=== PATIENT | male | born 1950 | race Hispanic/Latino ===

== ENCOUNTER → 2017-10-23 | Outpatient (CLI) | payer OTHER ==
[~2017-10-23] VITALS: Ht 172.7 cm; Wt 107.0 kg
[~2017-10-23] MED LIST: REGADENOSON 0.4 MG/5 ML PF SYG IVP SCH
== END | disposition home or self-care (01) ==
LOC: SHCH 11:06
PROVIDERS: ATTEND Internal Medicine Cardiovascular Disease
DX: R07.9 Chest pain, unspecified (principal)
CPT/HCPCS: 78452; 93017; 96374; A9500 ×2; J2785

== ENCOUNTER → 2019-09-02 | Outpatient (CLI) | payer OTHER ==
[2019-09-02 13:26] LABS: BASOPHILS % (AUTO) 0.7 % (0.0-5.0); EOSINOPHILS % (AUTO) 7.6 % (0.0-8.0); HEMATOCRIT 22.3 % (42-54); LYMPHOCYTES % (AUTO) 37.8 % (21.0-51.0); MEAN CORPUSCULAR HEMOGLOBIN 27.6 pg (27.0-33.0); MEAN CORPUSCULAR HGB CONC 31.8 g/dL (32.0-36.0); MEAN CORPUSCULAR VOLUME 86.8 fL (79-99); MONOCYTES % (AUTO) 13.3 % (3.0-13.0); NEUTROPHILS % (AUTO) 40.6 % (40.0-77.0); PLATELET COUNT (AUTO) 51 K/uL (130-400); RED BLOOD CELL COUNT(AUTO) 2.57 MIL/uL (4.50-6.20); WHITE BLOOD COUNT (AUTO) 2.8 K/uL (4.8-10.8)
[2019-09-02 13:53] LABS: CREATININE 5.7 mg/dL (0.5-1.5); POTASSIUM 3.5 mmol/L (3.5-5.1)
[2019-09-02 14:11] LABS: EOSINOPHILS % (MANUAL) 1 % (1-6); LYMPHOCYTES % (MANUAL) 46 % (22-44); MONOCYTES % (MANUAL) 6 % (2-9); SEGMENTED NEUTROPHILS % 47 % (40-70)
[2019-09-02 14:13] LABS: MAN.DIFF COMMENT-IMPRESSION MANUAL DIFFERENTIAL
[2019-09-02 14:14] LABS: PLATELET MORPHOLOGY COMMENT DECREASED
== END | disposition home or self-care (01) ==
LOC: LAB 13:00
PROVIDERS: ATTEND Urology
DX: R31.29 Other microscopic hematuria (principal)
CPT/HCPCS: 36415; 80048; 85025

== ENCOUNTER → 2019-09-21 | Outpatient (CLI) | payer OTHER | END | disposition home or self-care (01) | LOC: RAH 07:24 | PROVIDERS: ATTEND Urology | DX: R16.1 Splenomegaly, not elsewhere classified (principal); I70.0 Atherosclerosis of aorta; J90 Pleural effusion, not elsewhere classified; R31.29 Other microscopic hematuria; M47.815 Spondylosis without myelopathy or radiculopathy, thoracolumbar region | CPT/HCPCS: 74176 ==

== ENCOUNTER 2024-06-29 04:52 | Inpatient (IN) | payer OTHER ==
[~2024-06-29] VITALS: Ht 165.1 cm; Wt 86.8 kg
[2024-06-29 04:00] VITALS: BP 132/53; PULSE 102; RESP 19; TEMP 98.1
[2024-06-29] MEDS: IpraTROPium/alBUTERol SULFATE 3 ML SOLUTION IH ONE (05:24)
[2024-06-29 05:25] VITALS: PULSE 103; RESP 20
[2024-06-29] MEDS: cefTRIAXone 1G VIAL IVPB ONE (05:26)
[2024-06-29] MEDS: AZITHROMYCIN 250 MG TABLET PO SCH (05:30)
[2024-06-29 05:39] LABS: BASOPHILS # (AUTO) 0.01 K/uL (0.00-0.20); BASOPHILS % (AUTO) 0.3 % (0.0-5.0); EOSINOPHILS % (AUTO) 3.1 % (0.0-8.0); HEMATOCRIT 28.9 % (42-54); IMMATURE GRANULOCYTE ABSOLUTE 0.01 K/uL (0-1); LYMPHOCYTES # (AUTO) 0.9 K/uL (1.0-4.8); LYMPHOCYTES % (AUTO) 27.6 % (21.0-51.0); MEAN CORPUSCULAR HEMOGLOBIN 29.1 pg (27.0-33.0); MEAN CORPUSCULAR HGB CONC 32.9 g/dL (32.0-36.0); MEAN CORPUSCULAR VOLUME 88.7 fL (79-99); MONOCYTES # (AUTO) 0.4 K/uL (0.1-1.0); MONOCYTES % (AUTO) 10.9 % (3.0-13.0); NEUTROPHILS # (AUTO) 1.9 K/uL (1.8-7.7); NEUTROPHILS % (AUTO) 57.8 % (40.0-77.0); PLATELET COUNT (AUTO) 39 K/uL (130-400); RED BLOOD CELL COUNT(AUTO) 3.26 MIL/uL (4.50-6.20); RED CELL DISTRIBUTION WIDTH 15.5 % (11.0-15.5); WHITE BLOOD COUNT (AUTO) 3.2 K/uL (4.8-10.8)
[2024-06-29] MEDS: acetaMINOPHEN 500 MG TABLET PO ONE (05:41)
--- NOTE | 2024-06-29 05:41 | NUR ---
PATIENT TOOK 1GM TYLENOL 30MIN KILN BURNER
[2024-06-29 05:42] LABS: CREATININE 5.5 mg/dL (0.5-1.3); POTASSIUM 5.1 mmol/L (3.5-5.1)
[2024-06-29] MEDS: AZITHROMYCIN 500MG+NS 250ML 250 ML IVPB SCH (05:50)
[2024-06-29 05:51] LABS: RAPID GROUP A STREP negative (NEGATIVE)
--- NOTE | 2024-06-29 06:00 | ERN ---
ED Note History of Present Illness Stated Complaint: COUGH/CONGESTION AND SOB Chief Complaint: Cough Time Seen by MD: 05:04 Dictation: 73-year-old male with a past medical history of diabetes mellitus, hypertension, COPD, atrial fibrillation and end-stage renal disease on hemodialysis who presents to the ER complaining of cough and shortness breath x4 days associated with fever. Allergies: Coded Allergies: No Known Drug Allergies (Verified Allergy, 12/31/12) Past Medical History Past Medical History: A-Fib, COPD, Diabetes-Type II, Hypertension, Renal Failure Surgical History: Unknown Review of System Dictation NEGATIVE EXCEPT PER HPI Constitutional: Negative for fever,chills, and weight loss Eyes: Negative for injury, pain,redness, and discharge ENT: Negative for injury,pain or swelling Cardiovascular: denies chest pain, palpitations, and edema Respiratory: Shortness breath and cough Abdomen/GI: Negative for abdominal pain, nausea, vomiting, diarrhea, and constipation Back: Negative for injury and pain : Negative for injury, bleeding and discharge MS/Extremity: Negative for injury and deformity Skin: Negative for rash, and discoloration Neuro: Negative for headache, weakness, numbness, tingling, and seizure Psych: Negative for suicide ideation, homicidal ideation, and hallucinations Initial Vital Sign VS Vital Signs Date Time Temp Pulse Resp B/P (MAP) Pulse Ox O2 Delivery O2 Flow Rate FiO2 06/29/24 04:56 101.1 108 16 114/63 94 Room Air 0 06/29/24 05:02 21 Physical Exam Dictation General: awake, alert, NAD Head/Face: Normocephalic, atraumatic Eyes: PERRL, EOMI, vision at baseline ENT: oral cavity clear, TMs clear, no signs of infection Neck: Trachea midline, supple, no nuchal rigidity Cardiovascular: RRR, normal S1/S2, No MRGs, no JVD Respiratory: Bilateral wheezing Abdomen: Soft , no tender Skin: Warm, dry, normal turgor, no rash MS/Extremity: Pulses equal, no cyanosis, neurovascular intact, FROM Neuro: COAx4, GCS 15, strength 5/5, CN 2-12 intact, normal cerebellar exam, normal gait, Psych: Normal behavior, mood, and affect normal Results (Laboratory/Radiology) Laboratory/Radiology Laboratory Tests Test 06/29/24 04:55 06/29/24 05:00 White Blood Count 3.2 K/uL (4.8-10.8) L Red Blood Count 3.26 MIL/uL (4.50-6.20) L Hemoglobin 9.5 g/dL (14.0-18.0) L Hematocrit 28.9 % (42-54) L Mean Corpuscular Volume 88.7 fL (79-99) Mean Corpuscular Hemoglobin 29.1 pg (27.0-33.0) Mean Corpuscular Hemoglobin Concent 32.9 g/dL (32.0-36.0) Red Cell Distribution Width 15.5 % (11.0-15.5) Platelet Count 39 K/uL (130-400) L Mean Platelet Volume 10.3 fL (7.5-10.5) Immature Granulocyte % (Auto) 0.3 % (0-1) Neutrophils (%) (Auto) 57.8 % (40.0-77.0) Lymphocytes (%) (Auto) 27.6 % (21.0-51.0) Monocytes (%) (Auto) 10.9 % (3.0-13.0) Eosinophils (%) (Auto) 3.1 % (0.0-8.0) Basophils (%) (Auto) 0.3 % (0.0-5.0) Neutrophils # (Auto) 1.9 K/uL (1.8-7.7) Lymphocytes # (Auto) 0.9 K/uL (1.0-4.8) L Monocytes # (Auto) 0.4 K/uL (0.1-1.0) Eosinophils # (Auto) 0.10 K/uL (0.00-0.70) Basophils # (Auto) 0.01 K/uL (0.00-0.20) Absolute Immature Granulocyte (auto 0.01 K/uL (0-1) Nucleated Red Blood Cells 0.0 % (0.0-0.19) Platelet Morphology Comment See comments Sodium Level 141 mmol/L (136-145) Potassium Level 5.1 mmol/L (3.5-5.1) Chloride Level 101 mmol/L (101-111) Carbon Dioxide Level 28 mmol/L (21-32) Blood Urea Nitrogen 34 mg/dL (7-18) H Creatinine 5.5 mg/dL (0.5-1.3) H Glomerular Filtration Rate Calc 10 mL/min (>90) Random Glucose 117 mg/dL (70-105) H Lactic Acid Level 1.8 mmol/L (0.8-2.5) Total Calcium 8.7 mg/dL (8.5-10.1) Procalcitonin 0.33 ng/mL (0.05-0.5) Influenza Type A Antigen Negative For Type A Influenza Type B Antigen Negative For Type B SARS-CoV-2 Antigen (Rapid) PRESUMPTIVE NEGATIVE Group A Streptococcus Rapid negative (NEGATIVE) Labs Reviewed?: Yes ED Course ED Course Orders Procedure Category Date Status Time Chest 1vw RAD 06/29/24 Taken 05:14 Acetaminophen 500mg PHA 06/29/24 Complete Tab (Tylenol 500mg T 05:30 Ipratropium/Albuterol PHA 06/29/24 Complete Neb (Duoneb) 05:30 Ceftriaxone 1g Vial PHA 06/29/24 Complete (Rocephine 1g Inj) 05:30 Cbc With Differential LAB 06/29/24 Complete 05:17 Basic Metabolic Panel LAB 06/29/24 Complete 05:17 Influenza Type A & B, LAB 06/29/24 Complete Rapid 05:17 Covid19 (Sars Antigen LAB 06/29/24 Complete Rapid) 05:17 Rapid (Group A Strep) LAB 06/29/24 Complete 05:17 Procalcitonin LAB 06/29/24 Complete 05:17 Lactic Acid LAB 06/29/24 Complete 05:17 Blood Cult LUZ 06/29/24 In Process 05:17 Urinalysis Profile LAB 06/29/24 Logged 05:17 Azithromycin PHA 06/29/24 In Process (Zithromax) 05:30 Azithromycin 500mg+Ns PHA 06/29/24 In Process 250ml (Azithromyci 06:00 0.9%Nacl 1000ml (Ns PHA 06/29/24 In Process 1000ml) 06:00 Guaifenesin Sug-Armando PHA 06/29/24 Complete 100 Mg/5ml (Robituss 06:00 B-Type Natriuretic LAB 06/29/24 Logged Peptide 07:48 Troponin I High LAB 06/29/24 Logged Sensitivity 07:48 12 Lead Ekg Tracing- EKG 06/29/24 Logged Technical 07:48 Current Medications Medications (Trade) Dose Ordered Sig/Omid Route PRN Reason Start Time Stop Time Status Last Admin Dose Admin Acetaminophen (TYLenol 500MG TAB) 500 mg ONCE ONCE PO 06/29/24 05:30 06/29/24 05:41 DC Albuterol (DUOneb) 1 UDVIAL ONCE ONCE IH 06/29/24 05:30 06/29/24 05:31 DC 06/29/24 05:24 Azithromycin 250 ml @ 250 mls/hr Q24H IVPB 06/29/24 06:00 07/09/24 05:59 06/29/24 05:50 Azithromycin (Zithromax) 250 mg Q24H PO 06/29/24 05:30 07/09/24 05:29 Ceftriaxone Sodium (ROCEphine 1G INJ) 1 gm ONCE ONCE IVPB 06/29/24 05:30 06/29/24 05:31 DC 06/29/24 05:26 Guaifenesin (RobiTUSSin SUGAR-FREE 100 MG/ 5 ML UDCUP) 200 mg ONCE ONCE PO 06/29/24 06:00 06/29/24 06:03 DC 06/29/24 06:12 Sodium Chloride 1,000 ml @ 50 mls/hr Q20H IV 06/29/24 06:00 07/29/24 05:59 06/29/24 06:51 Vital Signs Date Time Temp Pulse Resp B/P (MAP) Pulse Ox O2 Delivery O2 Flow Rate FiO2 06/29/24 06:21 98.4 95 24 124/62 95 Room Air* 0 21 06/29/24 05:54 104 24 124/49 93 Room Air* 0 21 06/29/24 05:25 103 20 06/29/24 05:02 101.1 120 20 147/65 93 Room Air* 0 21 06/29/24 04:56 101.1 108 16 114/63 94 Room Air 0 Medical Decision Making MDM 73-year-old male with a past medical history of , hypertension, COPD, atrial fibrillation and end-stage renal disease on hemodialysis who presents to the ER complaining of cough and shortness breath x4 days associated with fever. Initial vital signs was remarkable for temperature 101.1 Physical exam remarkable for bilateral lung wheezing -pneumonia -sepsis -upper respiratory infection due to virus -COPD exacerbation Ordered laboratory workup including CBC, CMP, procalcitonin, lactic acid UA, chest x-ray. Since patient has history of end-stage renal disease who going to started fluids on a for gentle hydration at 50 cc NS per hour Azithromycin IV, ceftriaxone IV ordered DuoNeb ordered Guaifenesin ordered Following laboratory and imaging workup, Patient will be admitted under the care of Dr. Culver for ongoing management of respiratory distress secondary to end-stage renal disease on dialysis, COPD exacerbation, and right lung infiltrates suggestive of early pneumonia. DX & DISP Disposition: Inpatient Decision to Admit Time: 08:01 Departure Impression: Primary Impression: ESRD (end stage renal disease) Additional Impressions: COPD (chronic obstructive pulmonary disease) with ac lower brule bronchitis, Pneumonia, Afib, Respiratory distress Condition: Stable Referrals: DANIELLE STREETER MD (PCP) ROSELIA CRANDALL MD Jun 29, 2024 06:00 LEODAN WALLACE MD Jun 29, 2024 08:01
[2024-06-29 06:01] LABS: COVID19 (SARS ANTIGEN RAPID) PRESUMPTIVE NEGATIVE (NEGATIVE); INFLUENZA TYPE A Negative For Type A (NEGATIVE); INFLUENZA TYPE B Negative For Type B (NEGATIVE)
[2024-06-29] MEDS: guaiFENesin SUGAR-FREE 100 MG/5 ML UDCUP PO ONE (06:12)
[2024-06-29] MEDS: 0.9%NACL 1000ML 1,000 ML IV SCH (06:51)
--- NOTE | 2024-06-29 07:55 | NUR ---
[facility] STILL PENDING PT ON DIALYSIS
[2024-06-29] MEDS: cefTRIAXone 1G VIAL IVPB SCH (08:00)
--- NOTE | 2024-06-29 08:04 | EKG ---
[facility] Test Date: 2024-06-29 Test Time: 08:02:30 Pat Name: MEAGAN COWAN Department: [facility] Room: 424 Gender: M Machine Feeder: [id number] : 1950 Requested By: LEODAN WALLACE Order Number: [id number] Reading MD: Curt Johns Measurements Intervals [place] Rate: 100 P: 0 AL: 0 QRS: -21 QRSD: 83 T: 81 QT: 343 QTc: 442 Interpretive Statements Atrial fibrillation Nonspecific T abnormalities, lateral leads No previous ECG available for comparison Electronically Signed On 06-30-2024 14:10:46 BENCH ASSEMBLER by Curt Johns Please click the below link to view image of tracing.
--- NOTE | 2024-06-29 08:44 | EKG ---
[facility] Test Date: 2024-06-29 Test Time: 05:07:57 Pat Name: MEAGAN PONCE COWAN Department: [facility] Room: 424 Gender: M Block Saw Operator: [id number] : 1950 Requested By: ROSELIA ENNIS Order Number: [id number] Reading MD: Curt Johns Measurements Intervals [place] Rate: 94 P: 0 ME: 0 QRS: -7 QRSD: 86 T: -13 QT: 334 QTc: 419 Interpretive Statements Atrial fibrillation No previous ECG available for comparison Electronically Signed On 06-30-2024 14:01:38 CIRCULAR KNITTER HELPER by Curt Johns Please click the below link to view image of tracing.
[2024-06-29] MEDS: ENOXAPARIN SODIUM 30 MG/0.3 ML SQ SCH (08:55)
[2024-06-29] MEDS: DOXYCYCLINE HYCLATE 100 MG TABLET PO SCH (08:55)
[2024-06-29 09:21] LABS: APPEARANCE,URINE CLEAR (CLEAR); BILIRUBIN,URINE NEGATIVE (NEGATIVE); COLOR,URINE YELLOW (YELLOW); GLUCOSE, URINE (UA) NEGATIVE (NEGATIVE); KETONES,URINE NEGATIVE (NEGATIVE); LEUKOCYTE ESTERASE ,URINE 500 Leu/uL (NEGATIVE); NITRATE,URINE NEGATIVE (NEGATIVE); OCCULT BLOOD,URINE SMALL (NEGATIVE); PROTEIN,URINE 100 mg/dL (NEGATIVE); UROBILINOGEN,URINE 0.2 mg/dL (0.2-1.0)
[2024-06-29 09:33] LABS: ADD UA MICROSCOPIC YES
[2024-06-29 09:37] LABS: BACTERIA,URINE RARE /HPF (None Seen); MUCUS,URINE RARE LPF (None Seen); SQUAMOUS EPITHELIAL CELL,UR RARE /HPF (0-2); WBC,URINE 51-100 /HPF (0-1)
--- NOTE | 2024-06-29 09:37 | HMCIMG ---
CHEST 1VW REASON: pneumonia, sepsis COMPARISON: 12/31/2012 FINDINGS: There is mild patchy infiltrate in the left lower lobe. Lungs are otherwise clear. Heart size is normal. Mediastinum and bony thorax appear unremarkable. IMPRESSION: 1. Mild patchy infiltrate left lung base.
[2024-06-29] MEDS: ondanSETRON 4MG TABLET PO PRN (10:44)
[2024-06-29] MEDS: INSULIN LISpro 100 UNIT/ML 3ML SQ SCH (11:30)
[2024-06-29] MEDS ORDERED: VANCOMYCIN PROTOCOL PER PHARMACY IV SCH (13:00)
[2024-06-29] MEDS: VANCOMYCIN 1.75 GM/250 ML BAG 250 ML IV ONE (13:09)
[2024-06-29] MEDS: ZOSYN 3.375GM +NS 50ML IV SCH (13:14)
[2024-06-29] MEDS ORDERED: BENZONATATE 100 MG CAPSULE PO PRN (14:30)
[2024-06-29] MEDS: Solu-medROL 40MG VIAL IVP ONE ×2 (14:30→15:47)
--- NOTE | 2024-06-29 14:37 | NUR ---
DR. CORINNA BASSETT CAME BY TO SEE PT
--- NOTE | 2024-06-29 15:40 | HMCIMG ---
CT CHEST W/O CONTRAST REASON: SOB/TACH[place]NEA COMPARISON: None. TECHNIQUE: Multiple sequential axial images of the chest were obtained from the thoracic inlet through the upper pole of the kidneys without intravenous contrast administration. FINDINGS: There is a focal 4 cm patch of acute appearing infiltrate in the left lower lobe. There is a small focus of infiltrate in the left lung base as well as some infiltrate in the lingula. Findings are consistent with multifocal pneumonia on the left. There is decreased volume in the right lung but no acute appearing infiltrate and no focal mass. There is cardiomegaly. There is no vascular congestion or pleural effusion. There is no hilar or mediastinal lymphadenopathy. Chest wall structures appear normal. There is mild enlargement of the liver and moderate to marked enlargement of the spleen. There is no ascites and there are no obvious varices. Upper abdominal structures appear otherwise unremarkable. IMPRESSION: 1. Multiple patches of infiltrate in the left lung consistent with multifocal pneumonia. 2. Diffuse volume loss on the right with no acute appearing focal abnormality. 3. Cardiomegaly without vascular congestion. 4. Hepatosplenomegaly. CT was performed with one or more following dose reduction techniques: automated exposure control, adjustment of the mA and kv according to patient's size, or use of a iterative reconstruction technique.
[2024-06-29] MEDS: BENZONATATE 100 MG CAPSULE PO SCH (15:47)
[2024-06-29 16:41] VITALS: PULSE 111; RESP 22; O2SAT 93
[2024-06-29] MEDS ORDERED: IpraTROPium/alBUTERol SULFATE 3 ML SOLUTION IH SCH (18:00)
[2024-06-29] MEDS: SODIUM CHLORIDE 3% FOR INHALATION 4 ML/AMP VIAL.NEB IH ONE (18:32)
[2024-06-29 19:53] VITALS: PULSE 95; RESP 28; O2SAT 97
[2024-06-29] MEDS: IpraTROPium/alBUTERol SULFATE 3 ML SOLUTION IH SCH (19:53)
[2024-06-29 21:00] VITALS: BP 132/53; PULSE 102; RESP 19; TEMP 98.1; O2SAT 93
[2024-06-29 23:55] VITALS: PULSE 77; RESP 18; O2SAT 97
[2024-06-30] VITALS (26 sets, daily range): BP systolic 102–128; BP diastolic 33–93; PULSE 66–101; RESP 16–20; TEMP 98–98.7; O2SAT 95–98
--- NOTE | 2024-06-30 02:00 | HP ---
HISTORY AND PHYSICAL DATE OF SERVICE: 06/29/2024 PRESENTING COMPLAINT: Fever, cough and shortness of breath. HISTORY OF PRESENT ILLNESS: This is a 73-year-old male with morbid obesity, hypertension, and COPD, presented to the hospital with above complaint. The patient claims he has been having cough and shortness of breath for the past few days. The patient also complained of some wheezing. No diarrhea, no abdominal pain. In the ER, the patient was found to have temperature of 101.1. Chest x-ray shows mild patchy infiltrates. Urinalysis was positive, wbc 100 and leukocytes 500. The patient denies sick contact. Claims he has been compliant with dialysis. The patient also found to have leukopenia and thrombocytopenia. No rashes or itchiness. PAST MEDICAL HISTORY: * Diabetes mellitus. * Hypertension. * COPD. * ESRD. * Obesity. PAST SURGICAL HISTORY: AV fistula surgery. ALLERGIES: No known drug allergies. HOME MEDICATIONS: To be reviewed. SOCIAL HISTORY: Lives with family. No alcohol, tobacco or illicit drug use. FAMILY HISTORY: Noncontributory except for diabetes mellitus. REVIEW OF SYSTEMS: CONSTITUTIONAL: Positive for fever and chills. No weight loss or night sweats. EYES: No eye pain. No photophobia or diplopia. HENT: No sore throat. No rhinorrhea or earache. NECK: No neck pain or neck swelling. RESPIRATORY: Positive for cough. No hemoptysis or pleuritic pain. CARDIOVASCULAR: No chest pain. No palpitation or orthopnea. GASTROINTESTINAL: Denied nausea, vomiting or abdominal pain. GENITOURINARY: Positive for urinary frequency. No hematuria. CENTRAL NERVOUS SYSTEM: No headache, dizziness or slurred speech. PSYCHIATRY: No depression. No suicidal ideation. MUSCULOSKELETAL: No joint pain or joint swelling. PHYSICAL EXAMINATION: GENERAL: An elderly male, awake. VITAL SIGNS: Temperature 101.0, pulse 108, respirations 16, BP 114/63. EYES: No icterus. Pupils equal and reactive. HENT: No oral thrush seen. Moist oral mucosa. NECK: Supple. No JVD or thyromegaly. LUNGS: Good air entry. Crackles bilaterally. There is diffuse expiratory rhonchi. CARDIOVASCULAR SYSTEM: S1, S2 regular. No murmur heard. ABDOMEN: Obese, soft, nontender. Bowel sounds present. CENTRAL NERVOUS SYSTEM: Awake, alert, oriented x 3. No focal deficits. SKIN: No rashes. No itchiness. LYMPHATIC: No peripheral lymphadenopathy. BACK: No deformity, no pressure ulcer. HEMATOLOGIC: No bleeding or petechial lesion seen. MUSCULOSKELETAL: No joint swelling, erythema or tenderness. LABORATORY DATA: Sodium 141, potassium 5.1, BUN 34, creatinine 5.5. WBC 3.2, hemoglobin 9.5, platelet 39. Urinalysis, wbc 100, leukocytes 500. Influenza antigen negative. RADIOLOGY: Chest x-ray shows mild patchy infiltrate. ASSESSMENT: A 73-year-old male presenting with fever, cough. Current problems include: * Sepsis. * Healthcare-associated pneumonia. * End-stage renal disease, on dialysis. * Diabetes mellitus. * Hypertension. * Atrial fibrillation. * Urinary tract infection * Obesity. PLAN: * Admit the patient to medical floor. * Start the patient on vancomycin. * Start the patient on Zosyn. * Continue antihypertensive. * Continue antidiabetic. * Nephrology evaluation for dialysis. * The patietn will be placed on DuoNeb. * Tylenol as needed for pain or fever. * Zofran as needed for nausea and vomiting. * ADA diet. * Insulin sliding scale. TID: [id number] RECEIPT: [id number] [facility]
--- NOTE | 2024-06-30 02:56 | CONS ---
HISTORY OF PRESENT ILLNESS: We were called from the Emergency Room. The patient was brought to the Emergency Room with shortness of breath and multiple other comorbidities. The patient goes to dialysis, but does not know his lathe hand name. He states his lathe hand has not seen him for some time. He is Nick Acuna. This patient has underlying type 2 diabetes, hypertension, COPD, atrial fibrillation. The patient is having shortness of breath and cough for the past 4 days. Dialysis Thursday, and Thursday. The patient has underlying CHF, cardiomyopathy, COPD and multiple other comorbidities. PAST MEDICAL HISTORY: As above, COPD, atrial fibrillation, diabetes, hypertension and end-stage renal disease. PAST SURGICAL HISTORY: AV access and multiple as per records, he is a poor historian. SOCIAL HISTORY: He was a smoker before. No alcohol or drug abuse. FAMILY HISTORY: Unremarkable. ALLERGIES: No allergies. REVIEW OF SYSTEMS: CONSTITUTIONAL: Weak. No fever, chills or rigors. HEENT: With no headache, oral ulcers, sore throat or difficulty swallowing. No new vision complaint. RESPIRATORY: Has cough and expectoration and shortness of breath. CARDIOVASCULAR: Has shortness of breath. No chest pain. GASTROINTESTINAL: Negative for nausea, vomiting, diarrhea. GENITOURINARY: Negative for dysuria, hematuria. DERMATOLOGICAL: No rashes, pruritus. NEUROLOGIC: No seizure or syncope. ENDOCRINE: No polyuria, polydipsia or polyphagia. PHYSICAL EXAMINATION: GENERAL: Pale, sick looking, lying in bed. VITAL SIGNS: He is febrile and temperature up to 101.1, pulse is 108, respiratory rate is 16 and blood pressure 114/63. HEENT: Head is atraumatic. Pupils are round and reactive. Sclerae are anicteric. Conjunctivae not pale. Oral mucosa is not dry. NECK: Supple. No masses, bruits. Thyroid is palpable. Neck has no bruits. CHEST: Shows equal thoracic percussion note being resonant in all areas. Diminished in both bases. CARDIAC: Regular rhythm. No rub, no S3, S4. No parasternal heave. Apical beat is not localized. ABDOMEN: No guarding or tenderness. Bowel sounds are normoactive. No free fluid. EXTREMITIES: With no edema. No cyanosis, clubbing. LYMPHATIC: With no lymph node swelling in neck or axillary area. NEUROLOGIC: Awake, alert, nonfocal. No cranial nerve palsies. No motor or sensory deficit. BACK: No tenderness or back deformities. SKIN: No other petechial rashes noted on inspection and palpation. LABORATORY AND DIAGNOSTIC DATA: Labs have been reviewed in detail. The lab data has shown hemoglobin is low up to 9.5. Creatinine is 5.5 and BUN of 34. Old records reviewed. Serologies are negative for influenza and COVID. Chest x-ray was personally reviewed with no acute findings. Patchy infiltrates bilaterally. CT chest has been done and findings suggest multifocal pneumonia. Old records have been reviewed. Imaging studies personally reviewed. All the labs and x-rays were personally reviewed and interpreted. PROBLEMS: * The patient has sepsis. * Pneumonia. * End-stage renal disease. * Fluid overload. * Underlying hypertension. * Underlying diabetes. * Underlying obesity. * Anemia. * Multiple other comorbidities as above. Critically ill patient. PLAN: * The patient is being admitted. * The patient will get broad-spectrum antibiotics. * The patient will get bronchodilator therapy. * IV steroids may be needed. * Dialysis planned for tomorrow. * We will follow closely. The patient does have atrial fibrillation. The patient will need cardiac workup and followup. * The patient will have bronchodilators and steroids. * IV Dilaudid 0.5 q.6h. for pain. * We will discuss with the ER physician in detail. * We will have a followup on renal function, electrolytes and overall status. Condition is critical, guarded. The patient remains on broad-spectrum antibiotics. Thank you for this challenging consultation and letting me participate in the care of this patient. TID: [id number] RECEIPT: [id number]
[2024-06-30 03:40] LABS: EOSINOPHILS # (AUTO) 0.01 K/uL (0.00-0.70); EOSINOPHILS % (AUTO) 0.5 % (0.0-8.0); HEMATOCRIT 28.2 % (42-54); IMMATURE GRANULOCYTE ABSOLUTE 0.01 K/uL (0-1); LYMPHOCYTES # (AUTO) 0.6 K/uL (1.0-4.8); LYMPHOCYTES % (AUTO) 27.4 % (21.0-51.0); MEAN CORPUSCULAR HEMOGLOBIN 28.9 pg (27.0-33.0); MEAN CORPUSCULAR HGB CONC 31.9 g/dL (32.0-36.0); MEAN CORPUSCULAR VOLUME 90.7 fL (79-99); MONOCYTES # (AUTO) 0.2 K/uL (0.1-1.0); NEUTROPHILS # (AUTO) 1.3 K/uL (1.8-7.7); NEUTROPHILS % (AUTO) 62.6 % (40.0-77.0); PLATELET COUNT (AUTO) 30 K/uL (130-400); RED BLOOD CELL COUNT(AUTO) 3.11 MIL/uL (4.50-6.20); RED CELL DISTRIBUTION WIDTH 15.4 % (11.0-15.5); WHITE BLOOD COUNT (AUTO) 2.1 K/uL (4.8-10.8)
[2024-06-30 03:50] LABS: ALBUMIN 2.7 g/dL (3.5-5.0); BILIRUBIN,TOTAL 0.5 mg/dL (0.2-1.0); CREATININE 7.2 mg/dL (0.5-1.3); MAGNESIUM 1.9 mg/dL (1.80-2.40); TOTAL PROTEIN, SERUM 6.5 g/dL (6.0-8.3)
[2024-06-30 04:12] LABS: HEMOGLOBIN A1C 5.8 % (4.0-6.0)
[2024-06-30 05:49] LABS: BAND NEUTROPHILS % (MANUAL) 7 % (0-2); LYMPHOCYTES % (MANUAL) 19 % (22-44); MAN.DIFF COMMENT-IMPRESSION MANUAL DIFFERENTIAL; MONOCYTES % (MANUAL) 4 % (2-9); REACTIVE LYMPHOCYTES 2 % (0-0); SEGMENTED NEUTROPHILS % 68 % (40-70); TOTAL CELLS COUNTED 100; WBC MORPHOLOGY REACTIVE LYMPHS 1+
[2024-06-30] MEDS: Vitamin B Complex/Vit C/Folic Acid PO SCH (09:00)
[2024-06-30] MEDS ORDERED: 0.9% NACL 250ML 250 ML IV SCH (10:00)
--- NOTE | 2024-06-30 11:30 | NUR ---
BLOOD GLUCOSE 105. NO INSULIN COVERAGE NEEDED AT THIS TIME.
[2024-06-30] MEDS: 0.9%NACL 1000ML 1,000 ML IV SCH (12:20)
--- NOTE | 2024-06-30 12:30 | PN ---
INFECTIOUS DISEASE PROGRESS NOTE Date of Service: Jun 30, 2024 SUBJECTIVE: This is a 73-year-old male patient with past medical history of COPD and end- stage renal disease, on dialysis who was admitted with chief complaint of shortness of breaths, cough and fever. On admission patient had a fever of 101.1. A chest x-ray showed mild patchy infiltrate left lung base. A CT of the chest showed multiple patches of infiltrates in the left lung consistent with multifocal pneumonia. Sputum culture has been collected. A urinalysis was positive. Patient was seen and examined at bedside in room 424. During visit today patient was being dialyzed. No reports of burning on urination. We will follow up on the urine culture results. No fever, temperature is 98.1. Currently continues on vancomycin per pharmacy protocol, Zosyn IV and doxycycline. We will continue to monitor patient. PHYSICAL EXAM EYES: Anicteric. Pupils equal and reactive. HENT: No oral thrush seen, moist Oral mucosa. NECK: Supple, no JVD or thyromegaly. LUNGS: Good air entry. No rales, no rhonchi. CARDIOVASCULAR: S1, S2 regular. No murmur heard. ABDOMEN: Soft, non tender, bowel sounds present, no organomegaly. CENTRAL NERVOUS SYSTEM: Awake, alert, oriented x 3. SKIN: No rashes, no swelling. LYMPHATICS: No peripheral lymphadenopathy. MUSCULOSKELETAL: No joint swelling, erythema or tenderness. EXTREMITIES: No cyanosis or clubbing. BACK: No deformity, no pressure ulcer. GENITOURINARY: No dysuria or hematuria. Vital Sign (Last 12 Hours) 06/30/24 06/30/24 06/30/24 06/30/24 04:00 06:42 07:54 08:00 Temp 98.8 98.1 Pulse 66 83 78 Resp 18 18 18 B/P (MAP) 106/33 121/93 Pulse Ox 97 96 95 O2 Delivery Room Air Room Air Nasal Cannula* O2 Flow Rate 2 FiO2 21 21 28 06/30/24 06/30/24 06/30/24 06/30/24 09:00 09:15 09:30 09:45 Temp 98.1 98.1 Pulse 82 73 77 74 Resp 18 18 16 16 B/P (MAP) 125/54 124/56 123/55 128/56 O2 Delivery Room Air Room Air Room Air Room Air 12/1206/30/24 06/30/24 06/30/24 10:00 10:15 10:30 10:45 Pulse 74 74 77 75 Resp 18 16 16 16 B/P (MAP) 117/62 102/60 111/58 120/60 O2 Delivery Room Air Room Air Room Air Room Air 06/30/24 06/30/24 06/30/24 06/30/24 11:00 11:14 11:15 11:30 Pulse 83 83 74 85 Resp 16 18 16 16 B/P (MAP) 119/53 126/63 119/62 O2 Delivery Room Air Room Air Room Air 06/30/24 06/30/24 06/30/24 06/30/24 11:45 11:58 12:00 12:15 Temp 98.2 98.2 Pulse 79 74 101 87 Resp 16 18 16 18 B/P (MAP) 116/59 126/63 113/48 124/58 Pulse Ox 100 O2 Delivery Room Air Room Air Room Air Room Air FiO2 21 LABS: Laboratory: Test 06/30/24 11:32 06/30/24 03:14 06/29/24 09:10 06/29/24 05:00 Range/Units Whole Blood Glucose 105 70-110 MG/DL White Blood Count 2.1 #L 4.8-10.8 K/uL Red Blood Count 3.11 L 4.50-6.20 MIL/uL Hemoglobin 9.0 L 14.0-18.0 g/dL Hematocrit 28.2 L 42-54 % Mean Corpuscular Volume 90.7 79-99 fL Mean Corpuscular Hemoglobin 28.9 27.0-33.0 pg Mean Corpuscular Hemoglobin Concent 31.9 L 32.0-36.0 g/dL Red Cell Distribution Width 15.4 11.0-15.5 % Platelet Count 30 L 130-400 K/uL Mean Platelet Volume 11.5 H 7.5-10.5 fL Immature Granulocyte % (Auto) 0.5 0-1 % Neutrophils (%) (Auto) 62.6 40.0-77.0 % Lymphocytes (%) (Auto) 27.4 21.0-51.0 % Monocytes (%) (Auto) 9.0 3.0-13.0 % Eosinophils (%) (Auto) 0.5 0.0-8.0 % Basophils (%) (Auto) 0.0 0.0-5.0 % Neutrophils # (Auto) 1.3 L 1.8-7.7 K/uL Lymphocytes # (Auto) 0.6 L 1.0-4.8 K/uL Monocytes # (Auto) 0.2 0.1-1.0 K/uL Eosinophils # (Auto) 0.01 0.00-0.70 K/uL Basophils # (Auto) 0.00 0.00-0.20 K/uL Absolute Immature Granulocyte (auto 0.01 0-1 K/uL Segmented Neutrophils % 68 40-70 % Band Neutrophils % 7 H 0-2 % Lymphocytes % (Manual) 19 L 22-44 % Monocytes % (Manual) 4 2-9 % Nucleated Red Blood Cells 0.0 0.0-0.19 % Differential Comment MANUAL DIFFERENTIAL Reactive Lymphocytes 2 H 0-0 % White Cell Morphology Comment REACTIVE LYMPHS 1+ Platelet Morphology Comment See comments Red Blood Cell Morphology See comments Sodium Level 138 136-145 mmol/L Potassium Level 5.0 3.5-5.1 mmol/L Chloride Level 100 L 101-111 mmol/L Carbon Dioxide Level 30 21-32 mmol/L Blood Urea Nitrogen 47 H 7-18 mg/dL Creatinine 7.2 H 0.5-1.3 mg/dL Glomerular Filtration Rate Calc 7 >90 mL/min Random Glucose 198 #H 70-105 mg/dL Hemoglobin A1c 5.8 4.0-6.0 % Estimated Average Glucose (eAG) 120 70-126 mg/dL Total Calcium 9.0 8.5-10.1 mg/dL Magnesium Level 1.90 1.80-2.40 mg/dL Total Bilirubin 0.5 0.2-1.0 mg/dL Aspartate Amino Transf (AST/SGOT) 12 10-37 U/L Alanine Aminotransferase (ALT/SGPT) 21 12-78 U/L Alkaline Phosphatase 74 50-136 U/L Total Protein 6.5 6.0-8.3 g/dL Albumin 2.7 L 3.5-5.0 g/dL Urine Color YELLOW YELLOW Urine Appearance CLEAR CLEAR Urine pH 7.0 5.0-8.0 Urine Specific Gravel Switch 1.014 1.001-1.031 Urine Protein 100 H NEGATIVE mg/dL Urine Glucose (UA) NEGATIVE NEGATIVE mg/dL Urine Ketones NEGATIVE NEGATIVE mg/dL Urine Occult Blood SMALL H NEGATIVE Urine Nitrate NEGATIVE NEGATIVE Urine Bilirubin NEGATIVE NEGATIVE mg/dL Urine Urobilinogen 0.2 0.2-1.0 mg/dL Urine Leukocyte Esterase 500 H NEGATIVE Alexis/uL Urine RBC 6-10 H 0-1 /HPF Urine WBC 51-100 H 0-1 /HPF Urine Squamous Epithelial Cells RARE 0-2 /HPF Urine Bacteria RARE None Seen /HPF Influenza Type A Antigen Negative For Type A NEGATIVE Influenza Type B Antigen Negative For Type B NEGATIVE SARS-CoV-2 Antigen (Rapid) PRESUMPTIVE NEGATIVE NEGATIVE Group A Streptococcus Rapid negative NEGATIVE Test 06/29/24 04:55 Range/Units Lactic Acid Level 1.8 0.8-2.5 mmol/L Troponin I High Sensitivity 15 4-75 ng/L B-Type Natriuretic Peptide 289 H 0-100 pg/mL Procalcitonin 0.33 0.05-0.5 ng/mL ASSESSMENT: \multifocal pneumonia. Urinary tract infection. Sepsis Diabetes mellitus. End-stage renal disease, on dialysis. PLAN: Continue vancomycin per pharmacy protocol. Continue Zosyn. Glucometer checks a.c./hs and cover with insulin per sliding scale protocol. We will follow up on the final culture results. Continue bronchodilators. Continue DVT prophylaxis. Continue dialysis as recommended by harpsichord maker. This case was reviewed and discussed with my supervising physician and the above assessment and plan was formulated and agreed upon. ATTESTATION BY PHYSICIAN I have seen and examined the patient. I reviewed the documentation, medical decision making, and treatment plan as noted by the mid-level provider above. I agree with the findings and plan of care. DEMETRIA MICHELLE MD, [facility] Jun 30, 2024 12:30
--- NOTE | 2024-06-30 15:25 | NUR ---
DCP CM MET WITH PT THIS MORNING, PT WAS HAVING DIALYSIS IN ROOM, ASSESSMENT DONE. PT IS INDEPENDENT PRIOR TO ADMISSION, LIVES AT HOME WITH . VERFIED HOME ADDRESS: [address] [place] [id number]. PATIENT HAS A WALKER, SHOWER CHAIR, CPAP, GOES TO [employer] [facility] @ 5AM. DENIES ANY OTHER EQUIPMENT/SERVICES. FEELS SAFE TO GO BACK HOME, STILL DRIVES, FAMILY ABLE TO ASSIST WITH TRANSPORTATION AND NEEDS NECESSARY. DCP HOME ONCE STABLE. CM TO CONTINUE TO FOLLOW UP. Addendum: 06/30/24 at 1527 by ALONSO MAN LVN CM Amended: Links added.
--- NOTE | 2024-06-30 16:30 | NUR ---
BLOOD GLUCOSE 162. NO INSULIN COVERAGE NEEDED AT THIS TIME.
--- NOTE | 2024-06-30 16:40 | NUR ---
PER PT'S [facility] ([facility]) HBSAG - NEGATIVE 06/23/2024 HBSAB - NEGATIVE 03/10/2024
[2024-06-30] MEDS: VANCOMYCIN 750MG VIAL IVPB SCH (17:11)
[2024-06-30] MEDS: EPOETIN ALFA-EPBX (NON-ESRD) 10,000 UNIT/ML VIAL SQ SCH (17:16)
--- NOTE | 2024-06-30 18:30 | CONS ---
CONSULT NOTE: Patient with past medical history significant for mantle cell lymphoma with the patient was diagnosed 09/2019. With the patient received chemotherapy treatment for 6 cycles. The patient never follow-up with me in 4 more than 2 years. This patient with end-stage renal disease and hemodialysis. Patient was sent because of pancytopenia. Bone marrow biopsy was done which showed patient to have normal cellular bone marrow. But the patient was found 20-30% of non-Hodgkin lymphoma consistent with mantle cell lymphoma. PET CT scan was done in February 2023 which showed new hypermetabolic adenopathy above and below the diaphragm. There is enlargement of the spleen but with no increased activity. Patient denies any obvious bleeding. It seems the patient receiving iron and Procrit during hemodialysis. Patient was found to have recurrence of his mantle cell lymphoma with the patient was started on chemotherapy treatment with rituximab and and Revlimid. Patient received 4 weeks of rituximab. Patient actually receiving Revlimid. With the patient doing very well. PET CT scan was done 06/29/2023 which showed persistent but improving hypermetabolic lymphadenopathy involving multiple nodule station above and below diaphragm. There is improving splenomegaly. Otherwise no PET evidence of new lesion or metastatic disease elsewhere Patient was admitted to the hospital. Bone marrow biopsy was done 11/10/2023 showed mantle cell lymphoma only 1-2%. Cellularity of the bone marrow was hypocellular with 10-15%. PET CT scan was done 12/03/2023 which showed mildly increased uptake to the lymph node above the diaphragm. There is no definitive PET CT scan elsewhere suspicious for malignancy Patient supposed to be on lenalidomide which was started by the patient. Patient denies any hemoptysis, hematemesis, rectal bleeding, or hematuria. The patient denies any dizziness, chills, fever, or night sweats. The patient denies any diplopia, hearing problems, oropharyngeal soreness, or jaundice, chest pain, palpitations, and shortness of breath or cough, dysphagia, nausea, vomiting, constipation, diarrhea, abdominal pain, or distention, dysuria, incontinence, or frequency. 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 With the patient received chemotherapy treatment for 6 cycles. Patient never follow-up with me in 4 more than 2 years. This patient with end-stage renal disease and hemodialysis. Patient was sent because of pancytopenia. Bone marrow biopsy was done which showed patient to have normal cellular bone marrow. But the patient was found 20-30% of non-Hodgkin lymphoma consistent with mantle cell lymphoma. PET CT was done in February 2023 which showed new hypermetabolic adenopathy above and below the diaphragm. There is enlargement of the spleen but with no increased activity. Patient denies any obv ious bleeding. It seems the patient receiving iron and Procrit during hemodialysis. Patient was found to have recurrence of his mantle cell lymphoma with the patient was started on chemotherapy treatment with rituximab and and Revlimid. Patient received 4 weeks of rituximab. Patient actually receiving Revlimid. With the patient doing very well. PET CT was done 06/29/2023 which showed persistent but improving hypermetabolic lymphadenopathy involving multiple nodule station above and below diaphragm. There is improving splenomegaly. Otherwise no PET evidence of new lesion or metastatic disease elsewhere Patient was admitted to the hospital. Bone marrow biopsy was done 11/10/2023 showed mantle cell lymphoma only 1-2%. Cellularity of the bone marrow was hypocellular with 10-15%. PET CT was done 12/03/2023 which showed mildly increased uptake to the lymph node above the diaphragm. There is no definitive PET CT elsewhere suspicious for malignancy Patient supposed to be on lenalidomide which was started by the patient. Patient denies any hemoptysis, hematemesis, rectal bleeding, or hematuria. Patient denies any dizziness, chills, fever, or night sweats. Patient denies any diplopia, hearing problems, oropharyngeal soreness, or jaundice, chest pain, palpitations, and shortness of breath or cough, dysphagia, nausea, vomiting, constipation, diarrhea, abdominal pain, or distention, dysuria, incontinence, or frequency. 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 With the patient received chemotherapy treatment for 6 cycles. Patient never follow-up with me in 4 more than 2 years. This patient with end-stage renal disease and hemodialysis. Patient was sent because of pancytopenia. Bone marrow biopsy was done which showed patient to have normal cellular bone marrow. But the patient was found 20-30% of non-Hodgkin lymphoma consistent with mantle cell lymphoma. PET CT was done in February 2023 which showed new hypermetabolic adenopathy above and below the diaphragm. There is enlargement of the spleen but with no increased activity. Patient denies any obvious bleeding. It seems the patient receiving iron and Procrit during hemodialysis. Patient was found to have recurrence of his mantle cell lymphoma with the patient was started on chemotherapy treatment with rituximab and and Revlimid. Patient received 4 weeks of rituximab. Patient actually receiving Revlimid. With the patient doing very well. PET CT was done 06/29/2023 which showed persistent but improving hypermetabolic lymphadenopathy involving multiple nodule station above and below diaphragm. There is improving splenomegaly. Otherwise no PET evidence of new lesion or metastatic disease elsewhere Patient was admitted to the hospital. Bone marrow biopsy was done 10/19 showed mantle cell lymphoma only 1-2%. Cellularity of the bone marrow was hypocellular with 10-15%. PET CT was done 12/03/2023 which showed mildly increased uptake to the lymph node above the diaphragm. There is no definitive PET CT elsewhere suspicious for malignancy Patient denies any hemoptysis, hematemesis, rectal bleeding, or hematuria. Patient denies any dizziness, chi lls, fever, or night sweats. Patient denies any diplopia, hearing problems, oropharyngeal soreness, or jaundice, chest pain, palpitations, and shortness of breath or cough, dysphagia, nausea, vomiting, constipation, diarrhea, abdominal pain, or distention, dysuria, incontinence, or frequency. 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 With the patient received chemotherapy treatment for 6 cycles. Patient never follow-up with me in 4 more than 2 years. This patient with end-stage renal disease and hemodialysis. Patient was sent because of pancytopenia. Bone marrow biopsy was done which showed patient to have normal cellular bone marrow. But the patient was found 20-30% of non-Hodgkin lymphoma consistent with mantle cell lymphoma. PET CT was done in February 2023 which showed new hypermetabolic adenopathy above and below the diaphragm. There is enlargement of the spleen but with no increased activity. Patient denies any obvious bleeding. It seems the patient receiving iron and Procrit during hemodialysis. Patient was found to have recurrence of his mantle cell lymphoma with the patient was started on chemotherapy treatment with rituximab and and Revlimid. Patient received 4 weeks of rituximab. Patient actually receiving Revlimid. With the patient doing very well. PET CT was done 06/29/2023 which showed persistent but improving hypermetabolic lymphadenopathy involving multiple nodule station above and below diaphragm. There is improving splenomegaly. Otherwise no PET evidence of new lesion or metastatic disease elsewhere Patient was admitted to the hospital. Bone marrow biopsy was done 11/10/2023 showed mantle cell lymphoma only 1-2%. Cellularity of the bone marrow was hypocellular with 10-15%. Patient denies any hemoptysis, hematemesis, rectal bleeding, or hematuria. Patient denies any dizziness, chills, fever, or night sweats. Patient denies any diplopia, hearing problems, oropharyngeal soreness, or jaundice, chest pain, palpitations, and shortness of breath or cough, dysphagia, nausea, vomiting, constipation, diarrhea, abdominal pain, or distention, dysuria, incontinence, or frequency. 11/13/2023:Patient continued receiving Revlimid 5 mg p. o. daily after dialysis and was prescribed Procrit and IV during hemodialysis. 01/11/2024:Patient reports no fever and a decrease in lymph node size around the chest from recent scans. However, he experienced significant blood pressure drops during dialysis, unrelated to the procedure itself. Patient continued treatment with rituximab weekly for 4 weeks and Revlimid 5 mg p. o. daily after dialysis. Procrit and IV were also administered during hemodialysis. 03/25/2024: Patient's count was slightly low. Dr. Naranjo, a textile machinery sales representative from [employer] for [facility], attempted but failed to communicate directly with the patient. Patient's treatment with rituximab was completed and the administr ation of Revlimid 5 mg p.o. daily after dialysis was continued. Procrit and IV were also administered during hemodialysis. Past Surgical History: 02/04/2023, Dx: Mantle cell lymphoma (disorder) *, Procedure: Non-surgical bone marrow biopsy (procedure) Medications: Metolazone Oral 2.5 mg tablet 1 TABLET(S) PO as directed Pregabalin Oral 75 mg capsule 1 CAPSULE(S) PO TID Albuterol HFA Inhaler 90 mcg/actuation 90 mcg/actuation HFA aerosol inhaler 2 INHALATION(S) By inhalation as directed B Complex-Vitamin C-Folic Acid Oral 0.8 mg 0.8 mg tablet 1 TABLET(S) PO daily Torsemide Oral 5 mg tablet 1 TABLET(S) PO BID Montelukast Oral 10 mg tablet 10 mg orally. Take one tablet by mouth 12 hours prior, 30 minutes prior, and 12 hours post rituximab infusion. Hydrocortisone Topical Cream 0.5 % 0.5 % cream 1 TOPICAL APPLICATION Topical QID PRN Cholecalciferol Oral 125 mcg (5,000 unit) capsule 1 CAPSULE(S) PO daily Ferrous Sulfate Oral 325 mg (65 mg iron) tablet 1 TABLET(S) PO TID Lisinopril Oral 20 mg tablet 1 TABLET(S) PO daily Rosuvastatin Calcium Oral 5 mg tablet 1 TABLET(S) PO daily Tamsulosin Oral 0.4 mg capsule 1 CAPSULE PO daily as directed Zofran (Ondansetron Oral) 8 mg tablet 1 tablet(s) orally every 8 hours as needed for nausea. Amlodipine Oral 5 mg tablet 1 TABLET(S) PO daily Docusate Sodium Oral 100 mg capsule 1 CAPSULE(S) PO BID PRN Sodium Bicarbonate Oral 650 mg tablet 1 TABLET(S) PO daily Trazodone Oral 50 mg tablet 1 TABLET(S) PO daily Venlafaxine Oral 24 hr Cap 37.5 mg capsule,extended release 24hr 1 CAPSULE(S) PO daily Demerol (Meperidine IV) 25 mg/mL solution 25 mg intravenously once as needed for pain. Lenalidomide Oral 20 mg capsule 20 mg orally As Directed. Take on days 1-21 of a 28-day cycle. Jgejrrqlzgi-Iyhqdwvjt-Bpjgjgqv Inhaler 100 mcg-62.5 mcg-25 mcg/actuation 100-62.5-25 mcg blister with device 1 INHALATION(S) By inhalation as directed Warfarin Oral 4 mg tablet 1 TABLET(S) PO daily Medications reviewed and reconciled with patient. Allergies: No known medication allergies Smoking Status: Smoking Tobacco : none found; Smokeless Tobacco : none found; Vaping : none found Family History: Father: Mother: Daughter 1: Breast cancer ROS: General: no weight loss, no anorexia, no fevers, no chills HEENT: no sore throat, no epistaxis, no earache, no oral sores Cardiac: no chest pain, no orthopnea, no paroxysmal nocturnal dyspnea, no palpitations, no dizziness, no lightheadedness, no ankle swelling Pulmonary: no cough, no hemoptysis Genitourinary: no dysuria, no hematuria, no nocturia Gastrointestinal: no nausea, no vomiting, no dysphagia, no diarrhea, no melena, no hematochezia Musculoskeletal: no back pain, no joint pain, no joint swelling Dermatological: no rash, no changes of the skin that worry Endocrine: no polyuria, no excessive thirst, no facial swelling Neurological: no motor weakness in extremities, no severe generalized weakness Vitals: Height: 64.5 in; Weight: 196.1 lb; Blood pressure: 139/67, Pulse: 75, Temperature: 97.1 F, Respirations: 18, Pain Scale: 0 Karnofsky: 80% (Date: 10/10/2023) Physical Exam: General: No acute distress. Well-developed. HEENT: Normocephalic. Atraumatic. EOMI. PERRLA. Moist mucous membranes. No oral lesions. Oral cavity is clear. Neck: Supple. No cervical adenopathy. No supraclavicular adenopathy. Spine: Nontender to percussion. Lungs: No increased work of breathing. No use of accessory muscles. Heart: Good peripheral perfusion. Abdomen: Soft. Extremities: No lower extremity edema. No cyanosis. No clubbing. Normal 2+ pulses bilaterally. Neurological: Intact. Labs: CBC LabResults 05/09/2024 03/25/2024 01/11/2024 11/13/2023 10/30/2023 10/24/2023 CBC WBC x 10^3/uL 3.0 (L) 4.1 (L) 2.7 (L) 4.0 (L) RBC x 10^6/uL 3.65 (L) 3.39 (L) 3.08 (L) 3.10 (L) NRBC, absolute, x 10^3/uL 0 0 0 0 NRBC % /100 wbc 0 0 0 0 HGB g/dL 10.8 (L) 10.6 (L) 9.7 (L) 9.8 (L) HCT % 33.5 (L) 31.9 (L) 29.2 (L) 30.1 (L) MCV fL 92 94 95 (H) 97 (H) MCH pg 29.6 31.3 (H) 31.5 (H) 31.6 (H) MCHC g/dL 32.2 (L) 33.2 33.2 32.6 (L) RDW % 15.4 (H) 15.4 (H) 15.2 (H) 15.7 (H) PLT x 10^3/uL 48 (L) 41 (L) 48 (L) 69 (L) MPV fL 9.0 (L) 8.7 (L) 9.1 (L) 8.2 (L) Platelet, immature, fraction % 1.2 1.3 [place] % 33.1 (L) 60.9 39.0 (L) 36.3 (L) LY % 50.8 (H) 24.0 43.1 (H) 44.2 (H) MO % 9.8 10.0 12.0 (H) 10.1 EO % 5.7 (H) 4.4 (H) 4.4 (H) 7.8 (H) BA % 0.6 0.5 1.1 (H) 1.3 (H) IG % 0.0 0.2 0.4 0.3 [place] # (ANC) x 10^3/uL 1.1 (L) 2.5 1.1 (L) 1.5 LY # x 10^3/uL 1.6 1.0 (L) 1.2 1.8 MO # x 10^3/uL 0.3 0.4 0.3 0.4 EO # x 10^3/uL 0.2 0.2 0.1 0.3 BA # x 10^3/uL 0.0 0.0 0.0 0.1 IG # x 10^3/uL 0 0.01 0.01 0.01 Chemistries LabResults 05/09/2024 03/25/2024 01/11/2024 11/13/2023 10/30/2023 Chemistries Glucose mg/dL 122 (H) 152 (H) 109 (H) BUN mg/dL 36 (H) 49 (H) 37 (H) Creatinine, mg/dL 5.92 (HH) 6.68 (H) 5.14 (HH) BUN/Creatinine ratio 6.08 7 (L) 7.20 Sodium mmol/L 139 140 140 Potassium mmol/L 4.1 4.3 4.1 Chloride mmol/L 99 97 101 CO2 mmol/L 32.20 (H) 24 30.70 Anion gap 11.90 12.40 Calcium mg/dL 8.80 8.7 8.50 Albumin g/dL 3.0 (L) 3.7 (L) 3.1 (L) Total protein g/dL 7 6.3 7 Globulin g/dL 4 2.6 3.90 A/G ratio 0.8 0.8 Bilirubin, total mg/dL 0.60 0.3 0.40 Alkaline phosphatase U/L 75 63 Alkaline phosphatase, IU/L 75 AST/SGOT U/L 10 (L) 13 11 (L) ALT/SGPT U/L 16 20 17 LDH U/L 105 (L) GFR estimate mL/min/1.73m2 9 (L) 8 (L) 11 (L) Tumor Markers None Today Imaging: - Scan: lymph nodes still present Problem List: Mantle cell lymphoma (disorder) ( Stage Date: 10/14/2019, Stage IV Date of Dx:08/2019 ; ICD-10:C83.19 ;Mantle cell lymphoma, extranodal and solid organ sites ) Chronic kidney disease stage 5 (disorder) ( ICD-10:N18.6 ;End stage renal disease ) Diabetes mellitus type 2 (disorder) ( ICD-10:E11.9 ;Type 2 diabetes mellitus without complications ) Essential hypertension (disorder) ( ICD-10:I10 ;Essential (primary) hypertension ) Hyperlipidemia (disorder) ( ICD-10:E78.5 ;Hyperlipidemia, unspecified ) Hypersensitivity reaction (disorder) ( ICD-10:T50.905A ;Adverse effect of unspecified drugs, medicaments and biological substances, initial encounter ) Low back pain (finding) ( ICD-10:M54.50 ;Low back pain, unspecified ) Impression: 1. History of mantle cell lymphoma diagnosed 09/2019 with the patient was treated with chemotherapy treatment. This patient went to complete remission but the patient was noncompliant and never follow-up for more than [address] scan was done in February 2023 which showed new hypermetabolic adenopathy above and below the diaphragm. There is enlargement of the spleen but with no increased activity. Patient have progression disease and patient to receive treatment with rituximab and Revlimid patient is receiving rituximab in the chemotherapy. Patient is noncompliant of taking his Revlimid Patient actually is not taking Revlimid. PET CT scan was done 12/03/2023 which showed mildly increased uptake to the lymph node above the diaphragm. There is no definitive PET CT scan elsewhere suspicious for malignancy 2. Anemia, which is improved 3. Thrombocytopenia. Platelet count 68 K 4. Neutropenia recent bone marrow biopsy done 11/06/2023 which showed 10-20% of B-cell lymphoma consistent with recurrent mantle cell lymphoma. 5. End-stage renal disease on hemodialysis. 6. Hypertension 7. Anticoagulation was warfarin 8. Sepsis 9. Healthcareassociated pneumonia 10. History of atrial fibrillation Plan: 1. PET CT scan was done 12/03/2023 which showed mildly increased uptake to the lymph node above the diaphragm. There is no definitive PET CT scan elsewhere suspicious for malignancy Patient finished treatment with rituximab weekly for 4 weeks. Patient is receiving Revlimid 5 mg p.o. daily after dialysis. We will continue same treatment. With the patient look like he is stable. Bone marrow biopsy was done 11/10/2023 showed mantle cell lymphoma only 1-2%. Cellularity of the bone marrow was hypocellular with 10-15%. 2. No need for blood product transfusion 3. Will hold any chemotherapy treatment on this patient at this time 4. No need for blood product transfusion 5. Vitamin C 6. CBC and chemistry daily 7. Continue antibiotic treatment as per infectious disease specialist 8. Continue hemodialysis as per nephrologyLAB RESULTS 06/30/24 15:26: Whole Blood Glucose 162#H 06/30/24 03:14: White Blood Count 2.1#L, Red Blood Count 3.11L, Hemoglobin 9.0L, Hematocrit 28.2L, Mean Corpuscular Volume 90.7, Mean Corpuscular Hemoglobin 28.9, Mean Corpuscular Hemoglobin Concent 31.9L, Red Cell Distribution Width 15.4, Platelet Count 30L, Mean Platelet Volume 11.5H, Immature Granulocyte % (Auto) 0.5, Neutrophils (%) (Auto) 62.6, Lymphocytes (%) (Auto) 27.4, Monocytes (%) (Auto) 9.0, Eosinophils (%) (Auto) 0.5, Basophils (%) (Auto) 0.0, Neutrophils # (Auto) 1.3L, Lymphocytes # (Auto) 0.6L, Monocytes # (Auto) 0.2, Eosinophils # (Auto) 0.01, Basophils # (Auto) 0.00, Absolute Immature Granulocyte (auto 0.01, Segmented Neutrophils % 68, Band Neutrophils % 7H, Lymphocytes % (Manual) 19L, Monocytes % (Manual) 4, Nucleated Red Blood Cells 0.0, Differential Comment MANUAL DIFFERENTIAL, Reactive Lymphocytes 2H, White Cell Morphology Comment REACTIVE LYMPHS 1+, Platelet Morphology Comment See comments, Red Blood Cell Morphology See comments, Sodium Level 138, Potassium Level 5.0, Chloride Level 100L, Carbon Dioxide Level 30, Blood Urea Nitrogen 47H, Creatinine 7.2H, Glomerular Filtration Rate Calc 7, Random Glucose 198#H, Hemoglobin A1c 5.8, Estimated Average Glucose (eAG) 120, Total Calcium 9.0, Magnesium Level 1.90, Total Bilirubin 0.5, Aspartate Amino Transf (AST/SGOT) 12, Alanine Aminotransferase (ALT/SGPT) 21, Alkaline Phosphatase 74, Total Protein 6.5, Albumin 2.7L 06/29/24 09:10: Urine Color YELLOW, Urine Appearance CLEAR, Urine pH 7.0, Urine Specific [place] 1.014, Urine Protein 100H, Urine Glucose (UA) NEGATIVE, Urine Ketones NEGATIVE, Urine Occult Blood SMALLH, Urine Nitrate NEGATIVE, Urine Bilirubin NEGATIVE, Urine Urobilinogen 0.2, Urine Leukocyte Esterase 500H, Urine RBC 6-10H, Urine WBC 51-100H, Urine Squamous Epithelial Cells RARE, Urine Bacteria RARE 06/29/24 05:00: Influenza Type A Antigen Negative For Type A, Influenza Type B Antigen Negative For Type B, SARS-CoV-2 Antigen (Rapid) PRESUMPTIVE NEGATIVE, Group A Streptococcus Rapid negative 06/29/24 04:55: Lactic Acid Level 1.8, Troponin I High Sensitivity 15, B-Type Natriuretic Peptide 289H, Procalcitonin 0.33 Laboratory Tests Test 06/29/24 21:10 06/30/24 03:14 06/30/24 05:22 06/30/24 11:32 Whole Blood Glucose 247 MG/DL (70-110) #H 164 MG/DL (70-110) H 105 MG/DL (70-110) White Blood Count 2.1 K/uL (4.8-10.8) #L Red Blood Count 3.11 MIL/uL (4.50-6.20) L Hemoglobin 9.0 g/dL (14.0-18.0) L Hematocrit 28.2 % (42-54) L Mean Corpuscular Volume 90.7 fL (79-99) Mean Corpuscular Hemoglobin 28.9 pg (27.0-33.0) Mean Corpuscular Hemoglobin Concent 31.9 g/dL (32.0-36.0) L Red Cell Distribution Width 15.4 % (11.0-15.5) Platelet Count 30 K/uL (130-400) L Mean Platelet Volume 11.5 fL (7.5-10.5) H Immature Granulocyte % (Auto) 0.5 % (0-1) Neutrophils (%) (Auto) 62.6 % (40.0-77.0) Lymphocytes (%) (Auto) 27.4 % (21.0-51.0) Monocytes (%) (Auto) 9.0 % (3.0-13.0) Eosinophils (%) (Auto) 0.5 % (0.0-8.0) Basophils (%) (Auto) 0.0 % (0.0-5.0) Neutrophils # (Auto) 1.3 K/uL (1.8-7.7) L Lymphocytes # (Auto) 0.6 K/uL (1.0-4.8) L Monocytes # (Auto) 0.2 K/uL (0.1-1.0) Eosinophils # (Auto) 0.01 K/uL (0.00-0.70) Basophils # (Auto) 0.00 K/uL (0.00-0.20) Absolute Immature Granulocyte (auto 0.01 K/uL (0-1) Segmented Neutrophils % 68 % (40-70) Band Neutrophils % 7 % (0-2) H Lymphocytes % (Manual) 19 % (22-44) L Monocytes % (Manual) 4 % (2-9) Nucleated Red Blood Cells 0.0 % (0.0-0.19) Differential Comment MANUAL DIFFERENTIAL Reactive Lymphocytes 2 % (0-0) H White Cell Morphology Comment REACTIVE LYMPHS 1+ Platelet Morphology Comment See comments Red Blood Cell Morphology See comments Sodium Level 138 mmol/L (136-145) Potassium Level 5.0 mmol/L (3.5-5.1) Chloride Level 100 mmol/L (101-111) L Carbon Dioxide Level 30 mmol/L (21-32) Blood Urea Nitrogen 47 mg/dL (7-18) H Creatinine 7.2 mg/dL (0.5-1.3) H Glomerular Filtration Rate Calc 7 mL/min (>90) Random Glucose 198 mg/dL (70-105) #H Hemoglobin A1c 5.8 % (4.0-6.0) Estimated Average Glucose (eAG) 120 mg/dL (70-126) Total Calcium 9.0 mg/dL (8.5-10.1) Magnesium Level 1.90 mg/dL (1.80-2.40) Total Bilirubin 0.5 mg/dL (0.2-1.0) Aspartate Amino Transf (AST/SGOT) 12 U/L (10-37) Alanine Aminotransferase (ALT/SGPT) 21 U/L (12-78) Alkaline Phosphatase 74 U/L (50-136) Total Protein 6.5 g/dL (6.0-8.3) Albumin 2.7 g/dL (3.5-5.0) L Test 06/30/24 15:26 Whole Blood Glucose 162 MG/DL (70-110) #H YUMI AGUILA MD Jun 30, 2024 18:30
--- NOTE | 2024-06-30 20:27 | PN ---
SUBJECTIVE: The patient has been evaluated and seen several times on dialysis. The patient is critically ill. He is short of breath. No fever, chills or rigors. No cough, expectoration, or hemoptysis. No abdominal pain. No nausea or vomiting. No other associated finding. No other aggravating or relieving factors. The patient is generally weak. All the other systemic review is unchanged and unremarkable from the past. PHYSICAL EXAMINATION: GENERAL: Pale, no other distress. VITAL SIGNS: Blood pressure is 138/80, respiratory rate is 18, afebrile. HEENT: Head is atraumatic. Pupils are round and reactive. Sclerae anicteric. Conjunctivae not pale. Oral mucosa is not dry. NECK: Supple. No masses or bruits. Thyroid is palpable. Neck has no bruits. CHEST: Shows equal to thoracic percussion with diminished breath sounds at both bases. PLAN: To continue dialysis support. Continue monitoring of renal function. Continue monitoring of electrolytes. Intake, output, and weight will be monitored. The patient was evaluated and seen for dialysis and seen multiple times. I have discussed with other team members. TID: [id number] RECEIPT: [id number]
[2024-06-30] MEDS ORDERED: HYDR-3421 PO (21:10)
[2024-06-30] MEDS ORDERED: DOCU100C33 PO (21:10)
[2024-06-30] MEDS ORDERED: FOLI1TAB85 PO (21:10)
[2024-06-30] MEDS ORDERED: DIPH25TA18 PO (21:10)
[2024-06-30] MEDS ORDERED: TRAZ-185 PO (21:11)
[2024-06-30] MEDS ORDERED: TAMS-1 PO (21:12)
[2024-06-30] MEDS ORDERED: LISI20TA24 PO (21:12)
[2024-06-30] MEDS ORDERED: ROPI5TAB24 PO (21:12)
[2024-06-30 21:25] LABS: HEPATITIS B SURFACE ANTIGEN Non-Reactive (Nonreactive); HEPATITIS C ANTIBODY Non-Reactive (Nonreactive)
--- NOTE | 2024-06-30 22:54 | PN ---
NEPHROLOGY NOTE SUBJECTIVE: The patient has been evaluated and seen for dialysis and seen several times. The patient is generally very weak. No fever, chills, or rigors with no cough, expectoration, or hemoptysis. No abdominal pain. No nausea or vomiting. No chest pain. The patient has shortness of breath. He has underlying COPD. PHYSICAL EXAMINATION: VITAL SIGNS: Blood pressure 143/70, respiratory rate is 18, afebrile. HEENT: Head is atraumatic. Pupils are round and reactive to light. Sclerae are anicteric. Conjunctivae not pale. Oral mucosa is not dry. NECK: Supple. No masses or bruits. Thyroid is palpable. Neck has no bruits. CHEST: Shows diminished breath sounds at both bases. CARDIAC: Regular rhythm. No rub. No S3 or S4. No parasternal heave. LABORATORY DATA: We have reviewed available labs in detail and old records reviewed. PROBLEMS: Renal failure, anemia, shortness of breath, and chronic obstructive pulmonary disease. PLAN: Continue dialysis support. Continued monitoring of renal function, overall status. Intake, output, weight will be monitored. Nonsteroidal drugs will be avoided. Dose of medicine to be adjusted. The patient was evaluated and seen for dialysis and seen several times. We will be monitoring closely. TID: [id number] RECEIPT: [id number]
[2024-07-01] VITALS (16 sets, daily range): BP systolic 99–132; BP diastolic 41–59; PULSE 70–114; RESP 18–22; TEMP 97.9–98.7; O2SAT 97–100
[2024-07-01 04:54] LABS: BASOPHILS # (AUTO) 0.01 K/uL (0.00-0.20); BASOPHILS % (AUTO) 0.4 % (0.0-5.0); EOSINOPHILS # (AUTO) 0.05 K/uL (0.00-0.70); EOSINOPHILS % (AUTO) 1.8 % (0.0-8.0); IMMATURE GRANULOCYTE ABSOLUTE 0.01 K/uL (0-1); LYMPHOCYTES # (AUTO) 0.9 K/uL (1.0-4.8); LYMPHOCYTES % (AUTO) 34.2 % (21.0-51.0); MEAN CORPUSCULAR HEMOGLOBIN 29.2 pg (27.0-33.0); MEAN CORPUSCULAR VOLUME 91.2 fL (79-99); MONOCYTES # (AUTO) 0.2 K/uL (0.1-1.0); MONOCYTES % (AUTO) 8.5 % (3.0-13.0); NEUTROPHILS # (AUTO) 1.5 K/uL (1.8-7.7); NEUTROPHILS % (AUTO) 54.7 % (40.0-77.0); PLATELET COUNT (AUTO) 50 K/uL (130-400); RED BLOOD CELL COUNT(AUTO) 3.29 MIL/uL (4.50-6.20); RED CELL DISTRIBUTION WIDTH 15.7 % (11.0-15.5); WHITE BLOOD COUNT (AUTO) 2.7 K/uL (4.8-10.8)
[2024-07-01 05:08] LABS: CREATININE 5.7 mg/dL (0.5-1.3); MAGNESIUM 1.8 mg/dL (1.80-2.40); PHOSPHORUS 4.8 mg/dL (2.5-4.9); POTASSIUM 4.2 mmol/L (3.5-5.1)
[2024-07-01 06:11] LABS: LYMPHOCYTES % (MANUAL) 43 % (22-44); MAN.DIFF COMMENT-IMPRESSION MANUAL DIFFERENTIAL; MONOCYTES % (MANUAL) 1 % (2-9); REACTIVE LYMPHOCYTES 1 % (0-0); SEGMENTED NEUTROPHILS % 55 % (40-70); TOTAL CELLS COUNTED 100
[2024-07-01 06:12] LABS: PLATELET MORPHOLOGY COMMENT DECREASED; WBC MORPHOLOGY NORMAL
--- NOTE | 2024-07-01 13:49 | PN ---
NEPHROLOGY PROGRESS NOTE Date/Time Patient Seen: Jul 01, 2024 SUBJECTIVE: This is a 73-year-old male with morbid obesity, hypertension, end stage renal disease on hemodialysis Thursday, and COPD, He presented to the hospital with complaints of fever, cough and shortness of breath. In the ER, the patient was found to have temperature of 101.1. Chest x-ray shows mild patchy infiltrates. Urinalysis was positive, WBC 100 and leukocytes 500. He has been tolerating dialysis without difficulty. Dialysis planned for tomorrow. Has been started on antibiotics Blood cultures have been negative. Continues on Eogen on dialysis days He was seen in the medical floor, no acute distress No family at the bedside Progress remains guarded REVIEW OF SYSTEMS: GENERAL:Positive for cough NEUROLOGIC: Negative for any blurry vision, blind spots, double vision, facial asymmetry, dysphagia, dysarthria, hemiparesis, hemisensory deficits, vertigo, ataxia. HEENT: Negative for any head trauma, neck trauma, neck stiffness, photophobia, phonophobia, sinusitis, rhinitis. CARDIAC: Negative for any chest pain, dyspnea on exertion, paroxysmal nocturnal dyspnea, peripheral edema. PULMONARY: Negative for any shortness of breath, wheezing, COPD, or TB exposure. GASTROINTESTINAL: Negative for any abdominal pain, nausea, vomiting, bright red blood per rectum, melena. GENITOURINARY: Negative for any dysuria, hematuria, incontinence. INTEGUMENTARY: Negative for any rashes, cuts, insect bites. RHEUMATOLOGIC: Negative for any joint pains, photosensitive rashes, history of vasculitis or kidney problems. HEMATOLOGIC: Negative for any abnormal bruising, frequent infections or bleeding. Vital Signs (last 8hr) Date Time Temp Pulse Resp B/P (MAP) Pulse Ox O2 Delivery O2 Flow Rate FiO2 07/01/24 12:00 98.2 90 18 128/51 98 Room Air 07/01/24 11:26 86 18 07/01/24 11:25 86 18 N/A Room Air 21 07/01/24 08:00 98.8 114 20 116/53 96 Room Air 07/01/24 07:24 91 18 07/01/24 07:23 91 18 N/A Room Air 21 PHYSICAL EXAM: GENERAL: Alert and oriented x 3. No acute distress. Well-nourished. EYES: EOMI. Anicteric. HENT: Moist mucous membranes. No scleral icterus. No cervical lymphadenopathy. LUNGS: Clear to auscultation bilaterally. No accessory muscle use. CARDIOVASCULAR: Regular rate and rhythm. No murmur. No JVD. ABDOMEN: Soft, non-tender and non-distended. No palpable masses. EXTREMITIES: No edema. Non-tender. SKIN: No rashes or lesions. Warm. NEUROLOGIC: No focal neurological deficits. CN II-XII grossly intact, but not individually tested. PSYCHIATRIC: Cooperative. Appropriate mood and affect. Current Medications Medications (Trade) Dose Ordered Sig/Omid Route PRN Reason Start Time Stop Time Status Last Admin Dose Admin Acetaminophen (TYLenol 325MG TAB) 650 mg Q6H PRN PO MILD PAIN (1-3) 06/29/24 08:00 07/29/24 07:59 Albuterol (DUOneb) 1 UDVIAL [id number] IH 06/29/24 18:00 07/29/24 17:59 07/01/24 11:26 1 UDVIAL Albuterol (DUOneb) 1 UDVIAL [id number] IH 06/29/24 18:00 06/29/24 14:37 DC Azithromycin 250 ml @ 250 mls/hr Q24H IVPB 06/29/24 06:00 06/29/24 12:41 DC 06/29/24 05:50 250 MLS/HR Azithromycin (Zithromax) 250 mg Q24H PO 06/29/24 05:30 06/29/24 12:43 DC Benzonatate (Tessalon 100mg Caps) 200 mg Q8H PO 06/29/24 14:30 07/29/24 14:29 07/01/24 06:52 200 MG Benzonatate (Tessalon 100mg Caps) 200 mg Q8H PRN PO COUGH 06/29/24 14:30 06/29/24 14:37 DC Ceftriaxone Sodium (ROCEphine 1G INJ) 1 gm Q24H IVPB 06/29/24 08:00 06/29/24 12:41 DC Doxycycline Hyclate (Doxycycline Hyclate) 100 mg BID PO 06/29/24 09:00 07/09/24 08:59 07/01/24 09:09 100 MG Enoxaparin Sodium (Lovenox) 30 mg DAILY SQ 06/29/24 09:00 07/01/24 11:27 DC 06/29/24 08:55 30 MG Epoetin Placido-epbx (Retacrit) 6,000 unit ONCE SQ 06/30/24 14:30 07/01/24 09:13 DC 06/30/24 17:16 6,000 UNIT Epoetin Placido-epbx (Retacrit) 6,000 unit QWEEK SQ 07/07/24 09:00 08/06/24 08:59 Insulin Human Lispro (HumaLOG LISpro 100 UNIT/ML 3ML) INSULIN SLIDING SCAL... ACHS SQ 06/29/24 11:30 07/29/24 11:29 Ondansetron HCl (zoFRAN 4MG TABLET) 4 mg Q6H PRN PO NAUSEA/VOMITING 06/29/24 08:00 07/29/24 07:59 06/29/24 10:44 4 MG Piperacillin Sod/ Tazobactam Sod (Zosyn 3.375gm+NS 50ml) 3.375 gm Q12H IV 06/29/24 13:00 07/09/24 12:59 07/01/24 13:22 3.375 GM Sodium Chloride 250 ml @ 0 mls/hr AD IV 06/30/24 10:00 07/30/24 09:59 Sodium Chloride 1,000 ml @ 0 mls/hr ONCE IV 06/30/24 10:00 07/30/24 09:59 06/30/24 12:20 100 MLS/HR Sodium Chloride 1,000 ml @ 50 mls/hr Q20H IV 06/29/24 06:00 07/01/24 09:06 DC 06/29/24 06:51 50 MLS/HR Vancomycin HCl (Vancomycin 750mg) 750 mg QTUTHSA[DIALYSIS] IVPB 06/30/24 16:00 07/10/24 15:59 06/30/24 17:11 750 MG Vancomycin HCl (Vancomycin Protocol) 1 each AD IV 06/29/24 13:00 07/13/24 12:59 Vitamin B Complex/ Vit C/Folic Acid (Nephrovite Tablet) 1 cap DAILY PO 06/30/24 09:00 07/30/24 08:59 07/01/24 09:09 1 CAP LABORATORY: [ ] Hematology Labs: Test 07/01/24 04:40 06/30/24 03:14 Range/Units White Blood Count 2.7 L 4.8-10.8 K/uL Red Blood Count 3.29 L 4.50-6.20 MIL/uL Hemoglobin 9.6 L 14.0-18.0 g/dL Hematocrit 30.0 L 42-54 % Mean Corpuscular Volume 91.2 79-99 fL Mean Corpuscular Hemoglobin 29.2 27.0-33.0 pg Mean Corpuscular Hemoglobin Concent 32.0 32.0-36.0 g/dL Red Cell Distribution Width 15.7 H 11.0-15.5 % Platelet Count 50 #L 130-400 K/uL Mean Platelet Volume 10.0 7.5-10.5 fL Immature Granulocyte % (Auto) 0.4 0-1 % Neutrophils (%) (Auto) 54.7 40.0-77.0 % Lymphocytes (%) (Auto) 34.2 21.0-51.0 % Monocytes (%) (Auto) 8.5 3.0-13.0 % Eosinophils (%) (Auto) 1.8 0.0-8.0 % Basophils (%) (Auto) 0.4 0.0-5.0 % Neutrophils # (Auto) 1.5 L 1.8-7.7 K/uL Lymphocytes # (Auto) 0.9 L 1.0-4.8 K/uL Monocytes # (Auto) 0.2 0.1-1.0 K/uL Eosinophils # (Auto) 0.05 0.00-0.70 K/uL Basophils # (Auto) 0.01 0.00-0.20 K/uL Absolute Immature Granulocyte (auto 0.01 0-1 K/uL Segmented Neutrophils % 55 40-70 % Lymphocytes % (Manual) 43 22-44 % Monocytes % (Manual) 1 L 2-9 % Nucleated Red Blood Cells 0.0 0.0-0.19 % Differential Comment MANUAL DIFFERENTIAL Reactive Lymphocytes 1 H 0-0 % White Cell Morphology Comment NORMAL Platelet Morphology Comment DECREASED Red Blood Cell Morphology ANISO 1+ Band Neutrophils % 7 H 0-2 % Chemistry Labs: Test 07/01/24 11:10 07/01/24 04:40 06/30/24 03:14 Range/Units Whole Blood Glucose 125 H 70-110 MG/DL Sodium Level 141 136-145 mmol/L Potassium Level 4.2 3.5-5.1 mmol/L Chloride Level 100 L 101-111 mmol/L Carbon Dioxide Level 32 21-32 mmol/L Blood Urea Nitrogen 34 H 7-18 mg/dL Creatinine 5.7 H 0.5-1.3 mg/dL Glomerular Filtration Rate Calc 10 >90 mL/min Random Glucose 118 H 70-105 mg/dL Total Calcium 9.1 8.5-10.1 mg/dL Phosphorus Level 4.8 2.5-4.9 mg/dL Magnesium Level 1.80 1.80-2.40 mg/dL Hemoglobin A1c 5.8 4.0-6.0 % Estimated Average Glucose (eAG) 120 70-126 mg/dL Total Bilirubin 0.5 0.2-1.0 mg/dL Aspartate Amino Transf (AST/SGOT) 12 10-37 U/L Alanine Aminotransferase (ALT/SGPT) 21 12-78 U/L Alkaline Phosphatase 74 50-136 U/L Total Protein 6.5 6.0-8.3 g/dL Albumin 2.7 L 3.5-5.0 g/dL Diagnostic: REASON: SOB/TACHYPNEA ORDERING PHYSICIAN: DEMETRIA MICHELLE MD PROCEDURE: CHEST WO - CT CHEST W/O CONTRAST CT CHEST W/O CONTRAST REASON: SOB/TACH[place]NEA COMPARISON: None. TECHNIQUE: Multiple sequential axial images of the chest were obtained from the thoracic inlet through the upper pole of the kidneys without intravenous contrast administration. FINDINGS: There is a focal 4 cm patch of acute appearing infiltrate in the left lower lobe. There is a small focus of infiltrate in the left lung base as well as some infiltrate in the lingula. Findings are consistent with multifocal pneumonia on the left. There is decreased volume in the right lung but no acute appearing infiltrate and no focal mass. There is cardiomegaly. There is no vascular congestion or pleural effusion. There is no hilar or mediastinal lymphadenopathy. Chest wall structures appear normal. There is mild enlargement of the liver and moderate to marked enlargement of the spleen. There is no ascites and there are no obvious varices. Upper abdominal structures appear otherwise unremarkable. IMPRESSION: 1. Multiple patches of infiltrate in the left lung consistent with multifocal pneumonia. 2. Diffuse volume loss on the right with no acute appearing focal abnormality. 3. Cardiomegaly without vascular congestion. 4. Hepatosplenomegaly. CT was performed with one or more following dose reduction techniques: automated exposure control, adjustment of the mA and kv according to patient's size, or use of a iterative reconstruction technique. DICTATED BY: MARIA ESTHER GARY MD DATE: 06/29/24 1535 REASON: pneumonia, sepsis ORDERING PHYSICIAN: ROSELIA CRANDALL MD PROCEDURE: CXR1VW - CHEST 1VW CHEST 1VW REASON: pneumonia, sepsis COMPARISON: 12/31/2012 FINDINGS: There is mild patchy infiltrate in the left lower lobe. Lungs are otherwise clear. Heart size is normal. Mediastinum and bony thorax appear unremarkable. IMPRESSION: 1. Mild patchy infiltrate left lung base. DICTATED BY: MARIA ESTHER GARY MD DATE: 06/29/24 0932 DIAGNOSTICS / RADIOLOGY: ASSESSMENT: Fluid overload Anemia End-stage renal disease Multifocal pneumonia Urinary tract infection Sepsis Diabetes mellitus. PLAN: Labs and Diagnostics/ Radiology personally reviewed and interpreted by myself and supervising physician We have reviewed dialysis and external records in detail Continue dialysis schedule Thursday 1.5 L fluid restriction Continue to monitor H&H Epogen on dialysis days, as needed Continue with frequent monitoring of renal function, anemia, and electrolytes Order CBC, BMP, and electrolytes in the morning May use Dilaudid 0.5 mg IV every 6 hours as needed for severe pain Monitor blood pressure adjust medication doses as needed Maintain normotensive state Strict intake, output, and daily weight should be monitored Please renally adjust medications. Avoid nephrotoxics and nonsteroidal drugs. We will continue to monitor the patient closely We have discussed with the other team physicians in detail about the care plan ATTESTATION BY PHYSICIAN I have seen and examined the patient. I reviewed the documentation, medical decision making, and treatment plan as noted by the mid-level provider above. I agree with the findings and plan of care. MARTINA WEINSTEIN MD, [facility] Jul 01, 2024 13:49
--- NOTE | 2024-07-01 15:05 | NUR ---
DISCHARGE WITH COPIES FOR TRANSFER TO [facility] VIA EMS
--- NOTE | 2024-07-01 15:06 | NUR ---
PRIOR ENTRY INCORRECT CHART DISREGARD
--- NOTE | 2024-07-01 17:02 | PN ---
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 With the patient received chemotherapy treatment for 6 cycles. The patient never follow-up with me in 4 more than 2 years. This patient with end-stage renal disease and hemodialysis. Patient was sent because of pancytopenia. Bone marrow biopsy was done which showed patient to have normal cellular bone marrow. But the patient was found 20-30% of non-Hodgkin lymphoma consistent with mantle cell lymphoma. PET CT scan was done in February 2023 which showed new hypermetabolic adenopathy above and below the diaphragm. There is enlargement of the spleen but with no increased activity. Patient denies any obvious bleeding. It seems the patient receiving iron and Procrit during hemodialysis. Patient was found to have recurrence of his mantle cell lymphoma with the patient was started on chemotherapy treatment with rituximab and and Revlimid. Patient received 4 weeks of rituximab. Patient actually receiving Revlimid. With the patient doing very well. PET CT scan was done 06/29/2023 which showed persistent but improving hypermetabolic lymphadenopathy involving multiple nodule station above and below diaphragm. There is improving splenomegaly. Otherwise no PET evidence of new lesion or metastatic disease elsewhere Patient was admitted to the hospital. Bone marrow biopsy was done 11/10/2023 showed mantle cell lymphoma only 1-2%. Cellularity of the bone marrow was hypocellular with 10-15%. PET CT scan was done 12/03/2023 which showed mildly increased uptake to the lymph node above the diaphragm. There is no definitive PET CT scan elsewhere suspicious for malignancy Patient supposed to be on lenalidomide which was started by the patient. Patient denies any hemoptysis, hematemesis, rectal bleeding, or hematuria. The patient denies any dizziness, chills, fever, or night sweats. The patient denies any diplopia, hearing problems, oropharyngeal soreness, or jaundice, chest pain, palpitations, and shortness of breath or cough, dysphagia, nausea, vomiting, constipation, diarrhea, abdominal pain, or distention, dysuria, incontinence, or frequency. Physical Exam: General: No acute distress. Well-developed. HEENT: Normocephalic. Atraumatic. EOMI. PERRLA. Moist mucous membranes. No oral lesions. Oral cavity is clear. Neck: Supple. No cervical adenopathy. No supraclavicular adenopathy. Spine: Nontender to percussion. Lungs: No increased work of breathing. No use of accessory muscles. Heart: Good peripheral perfusion. Abdomen: Soft. Extremities: No lower extremity edema. No cyanosis. No clubbing. Normal 2+ pulses bilaterally. Neurological: Intact. Problem List: Mantle cell lymphoma (disorder) ( Stage Date: 10/14/2019, Stage IV Date of Dx:08/2019 ; ICD-10:C83.19 ;Mantle cell lymphoma, extranodal and solid organ sites ) Chronic kidney disease stage 5 (disorder) ( ICD-10:N18.6 ;End stage renal disease ) Diabetes mellitus type 2 (disorder) ( ICD-10:E11.9 ;Type 2 diabetes mellitus without complications ) Essential hypertension (disorder) ( ICD-10:I10 ;Essential (primary) hypertension ) Hyperlipidemia (disorder) ( ICD-10:E78.5 ;Hyperlipidemia, unspecified ) Hypersensitivity reaction (disorder) ( ICD-10:T50.905A ;Adverse effect of unspecified drugs, medicaments and biological substances, initial encounter ) Low back pain (finding) ( ICD-10:M54.50 ;Low back pain, unspecified ) Impression: 1. History of mantle cell lymphoma diagnosed 09/2019 with the patient was treated with chemotherapy treatment. This patient went to complete remission but the patient was noncompliant and never follow-up for more than [address] scan was done in February 2023 which showed new hypermetabolic adenopathy above and below the diaphragm. There is enlargement of the spleen but with no increased activity. Patient have progression disease and patient to receive treatment with rituximab and Revlimid patient is receiving rituximab in the chemotherapy. Patient is noncompliant of taking his Revlimid Patient actually is not taking Revlimid. PET CT scan was done 12/03/2023 which showed mildly increased uptake to the lymph node above the diaphragm. There is no definitive PET CT scan elsewhere suspicious for malignancy 2. Anemia, which is improved 3. Thrombocytopenia. Platelet count 68 K 4. Neutropenia recent bone marrow biopsy done 11/06/2023 which showed 10-20% of B-cell lymphoma consistent with recurrent mantle cell lymphoma. 5. End-stage renal disease on hemodialysis. 6. Hypertension 7. Anticoagulation was warfarin 8. Sepsis 9. Healthcareassociated pneumonia 10. History of atrial fibrillation Plan: 1. PET CT scan was done 12/03/2023 which showed mildly increased uptake to the lymph node above the diaphragm. There is no definitive PET CT scan elsewhere suspicious for malignancy Patient finished treatment with rituximab weekly for 4 weeks. Patient is receiving Revlimid 5 mg p.o. daily after dialysis. We will continue same treatment. With the patient look like he is stable. Bone marrow biopsy was done 11/10/2023 showed mantle cell lymphoma only 1-2%. Cellularity of the bone marrow was hypocellular with 10-15%. 2. No need for blood product transfusion 3. Will hold any chemotherapy treatment on this patient at this time 4. No need for blood product transfusion 5. There was hypersegmented neutrophils. This patient to be started on folic acid 1 mg p.o. daily and vitamin B12 1000 mcg p.o. daily. 6. CBC and chemistry daily 7. Continue antibiotic treatment as per infectious disease specialist 8. Continue hemodialysis as per nephrology Vitals/Labs Vital Signs Date Time Temp Pulse Resp B/P (MAP) Pulse Ox O2 Delivery O2 Flow Rate FiO2 07/01/24 12:00 98.2 90 18 128/51 98 Room Air 07/01/24 11:25 21 07/01/24 08:00 0 Laboratory Tests 07/01/24 04:40 Medications Current Medications Acetaminophen 500 mg ONCE ONCE PO; Start 06/29/24 at 05:30; Stop 06/29/24 at 05:41; Status DC Albuterol 1 UDVIAL ONCE ONCE IH Last administered on 06/29/24at 05:24; Start 06/29/24 at 05:30; Stop 06/29/24 at 05:31; Status DC Ceftriaxone Sodium 1 gm ONCE ONCE IVPB Last administered on 06/29/24at 05:26; Start 06/29/24 at 05:30; Stop 06/29/24 at 05:31; Status DC Azithromycin 250 mg Q24H PO; Start 06/29/24 at 05:30; Stop 06/29/24 at 12:43; Status DC Azithromycin 250 ml @ 250 mls/hr Q24H IVPB Last administered on 06/29/24at 05:50; Start 06/29/24 at 06:00; Stop 06/29/24 at 12:41; Status DC Sodium Chloride 1,000 ml @ 50 mls/hr Q20H IV Last administered on 06/29/24at 06:51; Start 06/29/24 at 06:00; Stop 07/01/24 at 09:06; Status DC Guaifenesin 200 mg ONCE ONCE PO Last administered on 06/29/24at 06:12; Start 06/29/24 at 06:00; Stop 06/29/24 at 06:03; Status DC Enoxaparin Sodium 30 mg DAILY SQ Last administered on 06/29/24at 08:55; Start 06/29/24 at 09:00; Stop 07/01/24 at 11:27; Status DC Doxycycline Hyclate 100 mg BID PO Last administered on 07/01/24at 09:09; Start 06/29/24 at 09:00; Stop 07/09/24 at 08:59 Ceftriaxone Sodium 1 gm Q24H IVPB; Start 06/29/24 at 08:00; Stop 06/29/24 at 12:41; Status DC Acetaminophen 650 mg Q6H PRN PO; Start 06/29/24 at 08:00; Stop 07/29/24 at 07:59 Ondansetron HCl 4 mg Q6H PRN PO Last administered on 06/29/24at 10:44; Start 06/29/24 at 08:00; Stop 07/29/24 at 07:59 Insulin Human Lispro INSULIN SLIDING SCAL... ACHS SQ; Start 06/29/24 at 11:30; Stop 07/29/24 at 11:29 Piperacillin Sod/ Tazobactam Sod 3.375 gm Q12H IV Last administered on 07/01/24at 13:22; Start 06/29/24 at 13:00; Stop 07/09/24 at 12:59 Vancomycin HCl 1 each AD IV; Start 06/29/24 at 13:00; Stop 07/13/24 at 12:59 Vancomycin HCl 250 ml @ 125 mls/hr ONCE ONCE IV Last administered on 06/29/24at 13:09; Start 06/29/24 at 13:00; Stop 06/29/24 at 14:59; Status DC Vancomycin HCl 750 mg QTUTHSA[DIALYSIS] IVPB Last administered on 06/30/24at 17:11; Start 06/30/24 at 16:00; Stop 07/10/24 at 15:59 Methylprednisolone Sodium Succinate 40 mg ONCE ONCE IVP Last administered on 06/29/24at 15:47; Start 06/29/24 at 14:30; Stop 06/29/24 at 14:31; Status DC Albuterol 1 UDVIAL [id number] IH; Start 06/29/24 at 18:00; Stop 06/29/24 at 14:37; Status DC Benzonatate 200 mg Q8H PRN PO; Start 06/29/24 at 14:30; Stop 06/29/24 at 14:37; Status DC Methylprednisolone Sodium Succinate 40 mg ONCE ONCE IVP; Start 06/29/24 at 14:30; Stop 06/29/24 at 14:33; Status DC Albuterol 1 UDVIAL [id number] IH Last administered on 07/01/24at 11:26; Start 06/29/24 at 18:00; Stop 07/29/24 at 17:59 Benzonatate 200 mg Q8H PO Last administered on 07/01/24at 15:21; Start 06/29/24 at 14:30; Stop 07/29/24 at 14:29 Vitamin B Complex/ Vit C/Folic Acid 1 cap DAILY PO Last administered on 07/01/24at 09:09; Start 06/30/24 at 09:00; Stop 07/30/24 at 08:59 Sodium Chloride 4 ml STK-MED ONCE IH; Start 06/29/24 at 18:32; Stop 06/29/24 at 18:33; Status DC Sodium Chloride 250 ml @ 0 mls/hr AD IV; Start 06/30/24 at 10:00; Stop 07/30/24 at 09:59 Sodium Chloride 1,000 ml @ 0 mls/hr ONCE IV Last administered on 06/30/24at 12:20; Start 06/30/24 at 10:00; Stop 07/30/24 at 09:59 Epoetin Placido-epbx 6,000 unit ONCE SQ Last administered on 06/30/24at 17:16; Start 06/30/24 at 14:30; Stop 07/01/24 at 09:13; Status DC Epoetin Placido-epbx 6,000 unit QWEEK SQ; Start 07/07/24 at 09:00; Stop 08/06/24 at 08:59 YUMI AGUILA MD Jul 01, 2024 17:02
--- NOTE | 2024-07-01 21:37 | PN ---
INFECTIOUS DISEASE PROGRESS NOTE Date of Service: Jul 01, 2024 SUBJECTIVE: This is a 73-year-old male patient with past medical history of COPD and end- stage renal disease, on dialysis who was admitted with chief complaint of shortness of breaths, cough and fever. On admission patient had a fever of 101.1. A chest x-ray showed mild patchy infiltrate left lung base. A CT of the chest showed multiple patches of infiltrates in the left lung consistent with multifocal pneumonia. Sputum culture has been collected. A urinalysis was positive. Patient was seen and examined at bedside in room 424. Patient is awake, alert and oriented x 3. Patient reported having less cough today. We will follow up on the sputum cultures. Patient is afebrile with a temperature of 98.2. Continues on vancomycin per pharmacy protocol, Zosyn IV and doxycycline. We will continue to monitor patient. PHYSICAL EXAM EYES: Anicteric. Pupils equal and reactive. HENT: No oral thrush seen, moist Oral mucosa. NECK: Supple, no JVD or thyromegaly. LUNGS: Good air entry. No rales, no rhonchi. CARDIOVASCULAR: S1, S2 regular. No murmur heard. ABDOMEN: Soft, non tender, bowel sounds present, no organomegaly. CENTRAL NERVOUS SYSTEM: Awake, alert, oriented x 3. SKIN: No rashes, no swelling. LYMPHATICS: No peripheral lymphadenopathy. MUSCULOSKELETAL: No joint swelling, erythema or tenderness. EXTREMITIES: No cyanosis or clubbing. BACK: No deformity, no pressure ulcer. GENITOURINARY: No dysuria or hematuria. Vital Sign (Last 12 Hours) 07/01/24 07/01/24 07/01/24 07/01/24 11:25 11:26 12:00 16:00 Temp 98.2 98.4 Pulse 86 86 90 90 Resp 18 18 18 18 B/P (MAP) 128/51 126/52 Pulse Ox 98 98 O2 Delivery N/A Room Air Room Air Room Air FiO2 21 07/01/24 07/01/24 07/01/24 19:17 19:18 20:09 Temp 98.1 Pulse 89 89 81 Resp 22 18 20 B/P (MAP) 132/54 Pulse Ox 99 O2 Delivery N/A Room Air Room Air FiO2 21 Intake & Output (last 24hrs) 06/30/24 06/30/24 07/01/24 15:00 23:00 07:00 Intake Total 875 ml Output Total 2200 ml Balance -2200 ml 875 ml LABS: Laboratory: Test 07/01/24 19:11 07/01/24 04:40 06/30/24 10:20 06/30/24 03:14 Range/Units Whole Blood Glucose 158 H 70-110 MG/DL White Blood Count 2.7 L 4.8-10.8 K/uL Red Blood Count 3.29 L 4.50-6.20 MIL/uL Hemoglobin 9.6 L 14.0-18.0 g/dL Hematocrit 30.0 L 42-54 % Mean Corpuscular Volume 91.2 79-99 fL Mean Corpuscular Hemoglobin 29.2 27.0-33.0 pg Mean Corpuscular Hemoglobin Concent 32.0 32.0-36.0 g/dL Red Cell Distribution Width 15.7 H 11.0-15.5 % Platelet Count 50 #L 130-400 K/uL Mean Platelet Volume 10.0 7.5-10.5 fL Immature Granulocyte % (Auto) 0.4 0-1 % Neutrophils (%) (Auto) 54.7 40.0-77.0 % Lymphocytes (%) (Auto) 34.2 21.0-51.0 % Monocytes (%) (Auto) 8.5 3.0-13.0 % Eosinophils (%) (Auto) 1.8 0.0-8.0 % Basophils (%) (Auto) 0.4 0.0-5.0 % Neutrophils # (Auto) 1.5 L 1.8-7.7 K/uL Lymphocytes # (Auto) 0.9 L 1.0-4.8 K/uL Monocytes # (Auto) 0.2 0.1-1.0 K/uL Eosinophils # (Auto) 0.05 0.00-0.70 K/uL Basophils # (Auto) 0.01 0.00-0.20 K/uL Absolute Immature Granulocyte (auto 0.01 0-1 K/uL Segmented Neutrophils % 55 40-70 % Lymphocytes % (Manual) 43 22-44 % Monocytes % (Manual) 1 L 2-9 % Nucleated Red Blood Cells 0.0 0.0-0.19 % Differential Comment MANUAL DIFFERENTIAL Reactive Lymphocytes 1 H 0-0 % White Cell Morphology Comment NORMAL Platelet Morphology Comment DECREASED Red Blood Cell Morphology ANISO 1+ Sodium Level 141 136-145 mmol/L Potassium Level 4.2 3.5-5.1 mmol/L Chloride Level 100 L 101-111 mmol/L Carbon Dioxide Level 32 21-32 mmol/L Blood Urea Nitrogen 34 H 7-18 mg/dL Creatinine 5.7 H 0.5-1.3 mg/dL Glomerular Filtration Rate Calc 10 >90 mL/min Random Glucose 118 H 70-105 mg/dL Total Calcium 9.1 8.5-10.1 mg/dL Phosphorus Level 4.8 2.5-4.9 mg/dL Magnesium Level 1.80 1.80-2.40 mg/dL Hepatitis B Surface Antigen. Non-Reactive Nonreactive Hepatitis C Antibody Non-Reactive Nonreactive Band Neutrophils % 7 H 0-2 % Hemoglobin A1c 5.8 4.0-6.0 % Estimated Average Glucose (eAG) 120 70-126 mg/dL Total Bilirubin 0.5 0.2-1.0 mg/dL Aspartate Amino Transf (AST/SGOT) 12 10-37 U/L Alanine Aminotransferase (ALT/SGPT) 21 12-78 U/L Alkaline Phosphatase 74 50-136 U/L Total Protein 6.5 6.0-8.3 g/dL Albumin 2.7 L 3.5-5.0 g/dL ASSESSMENT: Multifocal pneumonia. Urinary tract infection. Sepsis Diabetes mellitus. End-stage renal disease, on dialysis. PLAN: Continue vancomycin per pharmacy protocol. Continue Zosyn. Continue doxycycline. Glucometer checks a.c./hs and cover with insulin per sliding scale protocol. We will follow up on the final culture results. Continue bronchodilators. Continue DVT prophylaxis. Continue dialysis as recommended by film or tape librarian. This case was reviewed and discussed with my supervising physician and the above assessment and plan was formulated and agreed upon. ATTESTATION BY PHYSICIAN I have seen and examined the patient. I reviewed the documentation, medical decision making, and treatment plan as noted by the mid-level provider above. I agree with the findings and plan of care. DEMETRIA MICHELLE MD, [facility] Jul 01, 2024 21:37
[2024-07-02] VITALS (27 sets, daily range): BP systolic 104–147; BP diastolic 34–90; PULSE 80–99; RESP 16–20; TEMP 97.5–98.5; O2SAT 96–100
[2024-07-02 05:28] LABS: HEMATOCRIT 28.9 % (42-54); MEAN CORPUSCULAR HEMOGLOBIN 28.9 pg (27.0-33.0); MEAN CORPUSCULAR HGB CONC 32.2 g/dL (32.0-36.0); MEAN CORPUSCULAR VOLUME 89.8 fL (79-99); PLATELET COUNT (AUTO) 54 K/uL (130-400); RED BLOOD CELL COUNT(AUTO) 3.22 MIL/uL (4.50-6.20); RED CELL DISTRIBUTION WIDTH 15.8 % (11.0-15.5); WHITE BLOOD COUNT (AUTO) 2.1 K/uL (4.8-10.8)
[2024-07-02 06:35] LABS: LYMPHOCYTES % (MANUAL) 35 % (22-44); MAN.DIFF COMMENT-IMPRESSION MANUAL DIFFERENTIAL; MONOCYTES % (MANUAL) 1 % (2-9); REACTIVE LYMPHOCYTES 1 % (0-0); SEGMENTED NEUTROPHILS % 63 % (40-70); TOTAL CELLS COUNTED 100
[2024-07-02 06:36] LABS: PLATELET MORPHOLOGY COMMENT DECREASED; WBC MORPHOLOGY VACUOLATION 1+
[2024-07-02 06:40] LABS: CREATININE 7.6 mg/dL (0.5-1.3); POTASSIUM 3.9 mmol/L (3.5-5.1)
[2024-07-02 06:45] LABS: PHOSPHORUS 5.9 mg/dL (2.5-4.9); VANCOMYCIN LEVEL 23.1 mcg/mL (20.0-30.0)
--- NOTE | 2024-07-02 09:11 | PN ---
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 With the patient received chemotherapy treatment for 6 cycles. The patient never follow-up with me in 4 more than 2 years. This patient with end-stage renal disease and hemodialysis. Patient was sent because of pancytopenia. Bone marrow biopsy was done which showed patient to have normal cellular bone marrow. But the patient was found 20-30% of non-Hodgkin lymphoma consistent with mantle cell lymphoma. PET CT scan was done in February 2023 which showed new hypermetabolic adenopathy above and below the diaphragm. There is enlargement of the spleen but with no increased activity. Patient denies any obvious bleeding. It seems the patient receiving iron and Procrit during hemodialysis. Patient was found to have recurrence of his mantle cell lymphoma with the patient was started on chemotherapy treatment with rituximab and and Revlimid. Patient received 4 weeks of rituximab. Patient actually receiving Revlimid. With the patient doing very well. PET CT scan was done 06/29/2023 which showed persistent but improving hypermetabolic lymphadenopathy involving multiple nodule station above and below diaphragm. There is improving splenomegaly. Otherwise no PET evidence of new lesion or metastatic disease elsewhere Patient was admitted to the hospital. Bone marrow biopsy was done 11/10/2023 showed mantle cell lymphoma only 1-2%. Cellularity of the bone marrow was hypocellular with 10-15%. PET CT scan was done 12/03/2023 which showed mildly increased uptake to the lymph node above the diaphragm. There is no definitive PET CT scan elsewhere suspicious for malignancy Patient supposed to be on lenalidomide which was started by the patient. Patient is not taking any medication This patient white blood count continues to be decreased at 2.1K. Physical Exam: General: No acute distress. Well-developed. HEENT: Normocephalic. Atraumatic. EOMI. PERRLA. Moist mucous membranes. No oral lesions. Oral cavity is clear. Neck: Supple. No cervical adenopathy. No supraclavicular adenopathy. Spine: Nontender to percussion. Lungs: No increased work of breathing. No use of accessory muscles. Heart: Good peripheral perfusion. Abdomen: Soft. Extremities: No lower extremity edema. No cyanosis. No clubbing. Normal 2+ pulses bilaterally. Neurological: Intact. Impression: 1. History of mantle cell lymphoma diagnosed 09/2019 with the patient was treated with chemotherapy treatment. This patient went to complete remission but the patient was noncompliant and never follow-up for more than [address] scan was done in February 2023 which showed new hypermetabolic adenopathy above and below the diaphragm. There is enlargement of the spleen but with no increased activity. Patient have progression disease and patient to receive treatment with rituximab and Revlimid patient is receiving rituximab in the chemotherapy. Patient is noncompliant of taking his Revlimid Patient actually is not taking Revlimid. PET CT scan was done 12/03/2023 which showed mildly increased uptake to the lymph node above the diaphragm. There is no definitive PET CT scan elsewhere suspicious for malignancy 2. Anemia, which is improved 3. Thrombocytopenia. Platelet count 68 K 4. Neutropenia recent bone marrow biopsy done 11/06/2023 which showed 10-20% of B-cell lymphoma consistent with recurrent mantle cell lymphoma. 5. End-stage renal disease on hemodialysis. 6. Hypertension 7. Anticoagulation was warfarin 8. Sepsis 9. Healthcareassociated pneumonia 10. History of atrial fibrillation 11. Chemo induced neutropenia Plan: 1. PET CT scan was done 12/03/2023 which showed mildly increased uptake to the lymph node above the diaphragm. There is no definitive PET CT scan elsewhere suspicious for malignancy Patient finished treatment with rituximab weekly for 4 weeks. Patient is receiving Revlimid 5 mg p.o. daily after dialysis. We will continue same treatment. With the patient look like he is stable. Bone marrow biopsy was done 11/10/2023 showed mantle cell lymphoma only 1-2%. Cellularity of the bone marrow was hypocellular with 10-15%. 2. No need for blood product transfusion 3. Will hold any chemotherapy treatment on this patient at this time 4. This patient actually could benefit from Granix especially the patient white count continue to be low or even going lower. Especially with this patient actually receiving antibiotic treatment for infection If the infection did not resolve then this patient may be will need IVIG 5. There was hypersegmented neutrophils. This patient to be started on folic acid 1 mg p.o. daily and vitamin B12 1000 mcg p.o. daily. 6. CBC and chemistry daily 7. Continue antibiotic treatment as per infectious disease specialist 8. Continue hemodialysis as per nephrology Vitals/Labs Vital Signs Date Time Temp Pulse Resp B/P (MAP) Pulse Ox O2 Delivery O2 Flow Rate FiO2 07/02/24 09:00 99 16 123/54 Room Air 07/02/24 08:10 98.4 98 07/01/24 20:00 0 21 Laboratory Tests 07/02/24 04:49 Medications Current Medications Acetaminophen 500 mg ONCE ONCE PO; Start 06/29/24 at 05:30; Stop 06/29/24 at 05:41; Status DC Albuterol 1 UDVIAL ONCE ONCE IH Last administered on 06/29/24at 05:24; Start 06/29/24 at 05:30; Stop 06/29/24 at 05:31; Status DC Ceftriaxone Sodium 1 gm ONCE ONCE IVPB Last administered on 06/29/24at 05:26; Start 06/29/24 at 05:30; Stop 06/29/24 at 05:31; Status DC Azithromycin 250 mg Q24H PO; Start 06/29/24 at 05:30; Stop 06/29/24 at 12:43; Status DC Azithromycin 250 ml @ 250 mls/hr Q24H IVPB Last administered on 06/29/24at 05:50; Start 06/29/24 at 06:00; Stop 06/29/24 at 12:41; Status DC Sodium Chloride 1,000 ml @ 50 mls/hr Q20H IV Last administered on 06/29/24at 06:51; Start 06/29/24 at 06:00; Stop 07/01/24 at 09:06; Status DC Guaifenesin 200 mg ONCE ONCE PO Last administered on 06/29/24at 06:12; Start 06/29/24 at 06:00; Stop 06/29/24 at 06:03; Status DC Enoxaparin Sodium 30 mg DAILY SQ Last administered on 06/29/24at 08:55; Start 06/29/24 at 09:00; Stop 07/01/24 at 11:27; Status DC Doxycycline Hyclate 100 mg BID PO Last administered on 07/02/24at 08:46; Start 06/29/24 at 09:00; Stop 07/09/24 at 08:59 Ceftriaxone Sodium 1 gm Q24H IVPB; Start 06/29/24 at 08:00; Stop 06/29/24 at 12:41; Status DC Acetaminophen 650 mg Q6H PRN PO; Start 06/29/24 at 08:00; Stop 07/29/24 at 07:59 Ondansetron HCl 4 mg Q6H PRN PO Last administered on 06/29/24at 10:44; Start 06/29/24 at 08:00; Stop 07/29/24 at 07:59 Insulin Human Lispro INSULIN SLIDING SCAL... ACHS SQ; Start 06/29/24 at 11:30; Stop 07/29/24 at 11:29 Piperacillin Sod/ Tazobactam Sod 3.375 gm Q12H IV Last administered on 07/02/24at 00:17; Start 06/29/24 at 13:00; Stop 07/09/24 at 12:59 Vancomycin HCl 1 each AD IV; Start 06/29/24 at 13:00; Stop 07/13/24 at 12:59 Vancomycin HCl 250 ml @ 125 mls/hr ONCE ONCE IV Last administered on 06/29/24at 13:09; Start 06/29/24 at 13:00; Stop 06/29/24 at 14:59; Status DC Vancomycin HCl 750 mg QTUTHSA[DIALYSIS] IVPB Last administered on 06/30/24at 17:11; Start 06/30/24 at 16:00; Stop 07/10/24 at 15:59 Methylprednisolone Sodium Succinate 40 mg ONCE ONCE IVP Last administered on 06/29/24at 15:47; Start 06/29/24 at 14:30; Stop 06/29/24 at 14:31; Status DC Albuterol 1 UDVIAL [id number] IH; Start 06/29/24 at 18:00; Stop 06/29/24 at 14:37; Status DC Benzonatate 200 mg Q8H PRN PO; Start 06/29/24 at 14:30; Stop 06/29/24 at 14:37; Status DC Methylprednisolone Sodium Succinate 40 mg ONCE ONCE IVP; Start 06/29/24 at 14:30; Stop 06/29/24 at 14:33; Status DC Albuterol 1 UDVIAL [id number] IH Last administered on 07/02/24at 06:48; Start 06/29/24 at 18:00; Stop 07/29/24 at 17:59 Benzonatate 200 mg Q8H PO Last administered on 07/02/24at 07:13; Start 06/29/24 at 14:30; Stop 07/29/24 at 14:29 Vitamin B Complex/ Vit C/Folic Acid 1 cap DAILY PO Last administered on 07/02/24at 08:46; Start 06/30/24 at 09:00; Stop 07/30/24 at 08:59 Sodium Chloride 4 ml STK-MED ONCE IH; Start 06/29/24 at 18:32; Stop 06/29/24 at 18:33; Status DC Sodium Chloride 250 ml @ 0 mls/hr AD IV; Start 06/30/24 at 10:00; Stop 07/30/24 at 09:59 Sodium Chloride 1,000 ml @ 0 mls/hr ONCE IV Last administered on 06/30/24at 12:20; Start 06/30/24 at 10:00; Stop 07/30/24 at 09:59 Epoetin Placido-epbx 6,000 unit ONCE SQ Last administered on 06/30/24at 17:16; Start 06/30/24 at 14:30; Stop 07/01/24 at 09:13; Status DC Epoetin Placido-epbx 6,000 unit QWEEK SQ; Start 07/07/24 at 09:00; Stop 08/06/24 at 08:59 YUMI AGUILA MD Jul 02, 2024 09:11
[2024-07-02] MEDS: acetaMINOPHEN 325 MG TAB PO PRN (10:04)
--- NOTE | 2024-07-02 14:40 | PN ---
INFECTIOUS DISEASE PROGRESS NOTE Date of Service: Jul 02, 2024 SUBJECTIVE: This is a 73-year-old male patient with past medical history of COPD and end- stage renal disease, on dialysis who was admitted with chief complaint of shortness of breaths, cough and fever. On admission patient had a fever of 101.1. A chest x-ray showed mild patchy infiltrate left lung base. A CT of the chest showed multiple patches of infiltrates in the left lung consistent with multifocal pneumonia. Sputum culture has been collected. A urinalysis was positive. Patient was seen and examined at bedside in room 424. Patient is awake, alert and oriented x 3. Dialysis session in process during visit. Patient having productive cough and expectorating white sputum. Denying shortness of breaths and saturating 100% on room air. The preliminary sputum culture results showing normal oropharyngeal miguel. No reports of nausea or vomiting. Remains afebrile, temperature is 98.2. Hematology has evaluated patient and recommended Granix. Patient continues Pancytopenic. Continues on vancomycin per pharmacy protocol, Zosyn IV and doxycycline. We will continue to monitor patient. PHYSICAL EXAM EYES: Anicteric. Pupils equal and reactive. HENT: No oral thrush seen, moist Oral mucosa. NECK: Supple, no JVD or thyromegaly. LUNGS: Bilateral crackles. Wheezing. Productive cough. CARDIOVASCULAR: S1, S2 regular. No murmur heard. ABDOMEN: Soft, non tender, bowel sounds present, no organomegaly. CENTRAL NERVOUS SYSTEM: Awake, alert, oriented x 3. SKIN: No rashes, no swelling. LYMPHATICS: No peripheral lymphadenopathy. MUSCULOSKELETAL: No joint swelling, erythema or tenderness. EXTREMITIES: No cyanosis or clubbing. BACK: No deformity, no pressure ulcer. GENITOURINARY: No dysuria or hematuria. Vital Sign (Last 12 Hours) 07/02/24 07/02/24 07/02/24 07/02/24 04:31 06:48 07:00 07:15 Temp 97.9 97.5 97.5 Pulse 87 81 95 90 Resp 18 20 18 18 B/P (MAP) 137/55 132/54 122/44 Pulse Ox 98 O2 Delivery Room Air Room Air Room Air 07/02/24 07/02/24 07/02/24 07/02/24 07:30 07:45 08:00 08:10 Temp 98.4 Pulse 86 93 83 90 Resp 16 16 16 18 B/P (MAP) 109/40 126/63 130/67 124/63 Pulse Ox 98 O2 Delivery Room Air Room Air Room Air Room Air 07/02/24 07/02/24 07/02/24 07/02/24 08:15 08:25 08:30 08:45 Pulse 91 85 84 94 Resp 16 20 16 16 B/P (MAP) 144/51 140/48 147/72 O2 Delivery Room Air N/A Room Air Room Air Room Air FiO2 21 07/02/24 07/02/24 07/02/24 07/02/24 09:00 09:15 09:30 09:45 Pulse 99 90 93 98 Resp 16 16 16 16 B/P (MAP) 123/54 132/52 133/45 114/67 O2 Delivery Room Air Room Air Room Air Room Air 07/02/24 07/02/24 07/02/24 07/02/24 10:00 10:15 10:35 11:20 Temp 98.1 98.1 Pulse 99 94 90 93 Resp 16 18 16 20 B/P (MAP) 129/57 127/65 121/90 O2 Delivery Room Air Room Air Room Air 07/02/24 12:00 Temp 98.2 Pulse 98 Resp 18 B/P (MAP) 113/52 Pulse Ox 100 O2 Delivery Room Air Intake & Output (last 24hrs) 07/01/24 07/01/24 07/02/24 15:00 23:00 07:00 Intake Total 700 ml Output Total 300 ml Balance 400 ml LABS: Laboratory: Test 07/02/24 11:36 07/02/24 04:49 07/01/24 04:40 Range/Units Whole Blood Glucose 101 70-110 MG/DL White Blood Count 2.1 L 4.8-10.8 K/uL Red Blood Count 3.22 L 4.50-6.20 MIL/uL Hemoglobin 9.3 L 14.0-18.0 g/dL Hematocrit 28.9 L 42-54 % Mean Corpuscular Volume 89.8 79-99 fL Mean Corpuscular Hemoglobin 28.9 27.0-33.0 pg Mean Corpuscular Hemoglobin Concent 32.2 32.0-36.0 g/dL Red Cell Distribution Width 15.8 H 11.0-15.5 % Platelet Count 54 L 130-400 K/uL Mean Platelet Volume 10.8 H 7.5-10.5 fL Segmented Neutrophils % 63 40-70 % Lymphocytes % (Manual) 35 22-44 % Monocytes % (Manual) 1 L 2-9 % Nucleated Red Blood Cells 0.0 0.0-0.19 % Differential Comment MANUAL DIFFERENTIAL Reactive Lymphocytes 1 H 0-0 % White Cell Morphology Comment VACUOLATION 1+ Platelet Morphology Comment DECREASED Red Blood Cell Morphology See comments Sodium Level 144 136-145 mmol/L Potassium Level 3.9 3.5-5.1 mmol/L Chloride Level 102 101-111 mmol/L Carbon Dioxide Level 29 21-32 mmol/L Blood Urea Nitrogen 47 H 7-18 mg/dL Creatinine 7.6 H 0.5-1.3 mg/dL Glomerular Filtration Rate Calc 7 >90 mL/min Random Glucose 123 H 70-105 mg/dL Total Calcium 8.9 8.5-10.1 mg/dL Phosphorus Level 5.9 H 2.5-4.9 mg/dL Vancomycin Level 23.1 20.0-30.0 mcg/mL Immature Granulocyte % (Auto) 0.4 0-1 % Neutrophils (%) (Auto) 54.7 40.0-77.0 % Lymphocytes (%) (Auto) 34.2 21.0-51.0 % Monocytes (%) (Auto) 8.5 3.0-13.0 % Eosinophils (%) (Auto) 1.8 0.0-8.0 % Basophils (%) (Auto) 0.4 0.0-5.0 % Neutrophils # (Auto) 1.5 L 1.8-7.7 K/uL Lymphocytes # (Auto) 0.9 L 1.0-4.8 K/uL Monocytes # (Auto) 0.2 0.1-1.0 K/uL Eosinophils # (Auto) 0.05 0.00-0.70 K/uL Basophils # (Auto) 0.01 0.00-0.20 K/uL Absolute Immature Granulocyte (auto 0.01 0-1 K/uL Magnesium Level 1.80 1.80-2.40 mg/dL ASSESSMENT: Multifocal pneumonia. Urinary tract infection. Sepsis Diabetes mellitus. End-stage renal disease, on dialysis. Pancytopenia. PLAN: Continue vancomycin per pharmacy protocol. Continue Zosyn. Continue doxycycline. Glucometer checks a.c./hs and cover with insulin per sliding scale protocol. Continue bronchodilators. Continue DVT prophylaxis. Continue dialysis as recommended by computer analyst supervisor. We will monitor electrolytes. Hematology has been consulted and evaluated patient. This case was reviewed and discussed with my supervising physician and the above assessment and plan was formulated and agreed upon. ATTESTATION BY PHYSICIAN I have seen and examined the patient. I reviewed the documentation, medical decision making, and treatment plan as noted by the mid-level provider above. I agree with the findings and plan of care. DEMETRIA MICHELLE MD, [facility]TA [facility] Jul 02, 2024 14:40
--- NOTE | 2024-07-02 14:42 | PN ---
DIALYSIS NOTE SUBJECTIVE: The patient was seen and evaluated on hemodialysis, prescription noted. OBJECTIVE:. VITAL SIGNS: Blood pressure 126/65. CARDIOVASCULAR: Regular. LUNGS: Coarse. IMPRESSION: End-stage renal disease. PLAN: The patient will continue with maximal ultrafiltration as blood pressure allows. The patient remains on the antibiotics for the pneumonia. TID: [id number] RECEIPT: [id number]
--- NOTE | 2024-07-02 17:05 | NUR ---
DISCHARGED HOME WITH BELONGINGS AND COPY OF DISCHARGE SUMMARY.
--- NOTE | 2024-07-02 17:06 | NUR ---
DISREGARD PRIOR ENTRY.
[2024-07-02] MEDS: LOPERAMIDE 1 MG/7.5 ML UDCUP PO ONE (21:12)
[2024-07-03] VITALS (12 sets, daily range): BP systolic 106–134; BP diastolic 38–63; PULSE 72–99; RESP 16–20; TEMP 97.6–98.4; O2SAT 96–100
[2024-07-03 05:51] LABS: BASOPHILS # (AUTO) 0.02 K/uL (0.00-0.20); BASOPHILS % (AUTO) 0.9 % (0.0-5.0); EOSINOPHILS # (AUTO) 0.11 K/uL (0.00-0.70); HEMATOCRIT 29.7 % (42-54); IMMATURE GRANULOCYTE ABSOLUTE 0.01 K/uL (0-1); LYMPHOCYTES # (AUTO) 0.9 K/uL (1.0-4.8); LYMPHOCYTES % (AUTO) 39.2 % (21.0-51.0); MEAN CORPUSCULAR HGB CONC 32.3 g/dL (32.0-36.0); MEAN CORPUSCULAR VOLUME 89.7 fL (79-99); MONOCYTES # (AUTO) 0.3 K/uL (0.1-1.0); MONOCYTES % (AUTO) 12.2 % (3.0-13.0); NEUTROPHILS # (AUTO) 0.9 K/uL (1.8-7.7); NEUTROPHILS % (AUTO) 42.2 % (40.0-77.0); PLATELET COUNT (AUTO) 61 K/uL (130-400); RED BLOOD CELL COUNT(AUTO) 3.31 MIL/uL (4.50-6.20); RED CELL DISTRIBUTION WIDTH 15.8 % (11.0-15.5); WHITE BLOOD COUNT (AUTO) 2.2 K/uL (4.8-10.8)
[2024-07-03 06:03] LABS: CREATININE 5.8 mg/dL (0.5-1.3); MAGNESIUM 1.8 mg/dL (1.80-2.40); POTASSIUM 3.8 mmol/L (3.5-5.1)
--- NOTE | 2024-07-03 08:30 | NUR ---
DR AGUILA HERE AND NEW ORDERS RECEIVED
--- NOTE | 2024-07-03 10:12 | PN ---
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 With the patient received chemotherapy treatment for 6 cycles. The patient never follow-up with me in 4 more than 2 years. This patient with end-stage renal disease and hemodialysis. Patient was sent because of pancytopenia. Bone marrow biopsy was done which showed patient to have normal cellular bone marrow. But the patient was found 20-30% of non-Hodgkin lymphoma consistent with mantle cell lymphoma. PET CT scan was done in February 2023 which showed new hypermetabolic adenopathy above and below the diaphragm. There is enlargement of the spleen but with no increased activity. Patient denies any obvious bleeding. It seems the patient receiving iron and Procrit during hemodialysis. Patient was found to have recurrence of his mantle cell lymphoma with the patient was started on chemotherapy treatment with rituximab and and Revlimid. Patient received 4 weeks of rituximab. Patient actually receiving Revlimid. With the patient doing very well. PET CT scan was done 06/29/2023 which showed persistent but improving hypermetabolic lymphadenopathy involving multiple nodule station above and below diaphragm. There is improving splenomegaly. Otherwise no PET evidence of new lesion or metastatic disease elsewhere Patient was admitted to the hospital. Bone marrow biopsy was done 11/10/2023 showed mantle cell lymphoma only 1-2%. Cellularity of the bone marrow was hypocellular with 10-15%. PET CT scan was done 12/03/2023 which showed mildly increased uptake to the lymph node above the diaphragm. There is no definitive PET CT scan elsewhere suspicious for malignancy Patient supposed to be on lenalidomide which was started by the patient. Patient is not taking any medication This patient white blood count continues to be decreased at 2.2K. Physical Exam: General: No acute distress. Well-developed. HEENT: Normocephalic. Atraumatic. EOMI. PERRLA. Moist mucous membranes. No oral lesions. Oral cavity is clear. Neck: Supple. No cervical adenopathy. No supraclavicular adenopathy. Spine: Nontender to percussion. Lungs: No increased work of breathing. No use of accessory muscles. Heart: Good peripheral perfusion. Abdomen: Soft. Extremities: No lower extremity edema. No cyanosis. No clubbing. Normal 2+ pulses bilaterally. Neurological: Intact. Impression: 1. History of mantle cell lymphoma diagnosed 09/2019 with the patient was treated with chemotherapy treatment. This patient went to complete remission but the patient was noncompliant and never follow-up for more than [address] scan was done in February 2023 which showed new hypermetabolic adenopathy above and below the diaphragm. There is enlargement of the spleen but with no increased activity. Patient have progression disease and patient to receive treatment with rituximab and Revlimid patient is receiving rituximab in the chemotherapy. Patient is noncompliant of taking his Revlimid Patient actually is not taking Revlimid. PET CT scan was done 12/03/2023 which showed mildly increased uptake to the lymph node above the diaphragm. There is no definitive PET CT scan elsewhere suspicious for malignancy 2. Anemia, which is improved 3. Thrombocytopenia. Platelet count 68 K 4. Neutropenia recent bone marrow biopsy done 11/06/2023 which showed 10-20% of B-cell lymphoma consistent with recurrent mantle cell lymphoma. 5. End-stage renal disease on hemodialysis. 6. Hypertension 7. Anticoagulation was warfarin 8. Sepsis 9. Healthcareassociated pneumonia 10. History of atrial fibrillation 11. Chemo induced neutropenia Plan: 1. PET CT scan was done 12/03/2023 which showed mildly increased uptake to the lymph node above the diaphragm. There is no definitive PET CT scan elsewhere suspicious for malignancy Patient finished treatment with rituximab weekly for 4 weeks. Patient is receiving Revlimid 5 mg p.o. daily after dialysis. We will continue same treatment. With the patient look like he is stable. Bone marrow biopsy was done 11/10/2023 showed mantle cell lymphoma only 1-2%. Cellularity of the bone marrow was hypocellular with 10-15%. 2. No need for blood product transfusion 3. Will hold any chemotherapy treatment on this patient at this time 4. This patient actually could benefit from Granix especially the patient white count continue to be low or even going lower. Especially with this patient actually receiving antibiotic treatment for infection If the infection did not resolve then this patient may be will need IVIG 5. There was hypersegmented neutrophils. This patient to be started on folic acid 1 mg p.o. daily and vitamin B12 1000 mcg p.o. daily. 6. CBC and chemistry daily 7. Continue antibiotic treatment as per infectious disease specialist 8. Continue hemodialysis as per nephrology Vitals/Labs Vital Signs Date Time Temp Pulse Resp B/P (MAP) Pulse Ox O2 Delivery O2 Flow Rate FiO2 07/03/24 08:00 98.4 95 16 134/59 96 Room Air 07/03/24 06:33 21 07/02/24 20:00 0 Laboratory Tests 07/03/24 04:33 Medications Current Medications Acetaminophen 500 mg ONCE ONCE PO; Start 06/29/24 at 05:30; Stop 06/29/24 at 05:41; Status DC Albuterol 1 UDVIAL ONCE ONCE IH Last administered on 06/29/24at 05:24; Start 06/29/24 at 05:30; Stop 06/29/24 at 05:31; Status DC Ceftriaxone Sodium 1 gm ONCE ONCE IVPB Last administered on 06/29/24at 05:26; Start 06/29/24 at 05:30; Stop 06/29/24 at 05:31; Status DC Azithromycin 250 mg Q24H PO; Start 06/29/24 at 05:30; Stop 06/29/24 at 12:43; Status DC Azithromycin 250 ml @ 250 mls/hr Q24H IVPB Last administered on 06/29/24at 05:50; Start 06/29/24 at 06:00; Stop 06/29/24 at 12:41; Status DC Sodium Chloride 1,000 ml @ 50 mls/hr Q20H IV Last administered on 06/29/24at 06:51; Start 06/29/24 at 06:00; Stop 07/01/24 at 09:06; Status DC Guaifenesin 200 mg ONCE ONCE PO Last administered on 06/29/24at 06:12; Start 06/29/24 at 06:00; Stop 06/29/24 at 06:03; Status DC Enoxaparin Sodium 30 mg DAILY SQ Last administered on 06/29/24at 08:55; Start 06/29/24 at 09:00; Stop 07/01/24 at 11:27; Status DC Doxycycline Hyclate 100 mg BID PO Last administered on 07/02/24at 19:58; Start 06/29/24 at 09:00; Stop 07/09/24 at 08:59 Ceftriaxone Sodium 1 gm Q24H IVPB; Start 06/29/24 at 08:00; Stop 06/29/24 at 12:41; Status DC Acetaminophen 650 mg Q6H PRN PO Last administered on 07/02/24at 10:04; Start 06/29/24 at 08:00; Stop 07/29/24 at 07:59 Ondansetron HCl 4 mg Q6H PRN PO Last administered on 06/29/24at 10:44; Start 06/29/24 at 08:00; Stop 07/29/24 at 07:59 Insulin Human Lispro INSULIN SLIDING SCAL... ACHS SQ; Start 06/29/24 at 11:30; Stop 07/29/24 at 11:29 Piperacillin Sod/ Tazobactam Sod 3.375 gm Q12H IV Last administered on 07/03/24at 00:03; Start 06/29/24 at 13:00; Stop 07/09/24 at 12:59 Vancomycin HCl 1 each AD IV; Start 06/29/24 at 13:00; Stop 07/13/24 at 12:59 Vancomycin HCl 250 ml @ 125 mls/hr ONCE ONCE IV Last administered on 06/29/24at 13:09; Start 06/29/24 at 13:00; Stop 06/29/24 at 14:59; Status DC Vancomycin HCl 750 mg QTUTHSA[DIALYSIS] IVPB Last administered on 07/02/24at 18:06; Start 06/30/24 at 16:00; Stop 07/10/24 at 15:59 Methylprednisolone Sodium Succinate 40 mg ONCE ONCE IVP Last administered on 06/29/24at 15:47; Start 06/29/24 at 14:30; Stop 06/29/24 at 14:31; Status DC Albuterol 1 UDVIAL [id number] IH; Start 06/29/24 at 18:00; Stop 06/29/24 at 14:37; Status DC Benzonatate 200 mg Q8H PRN PO; Start 06/29/24 at 14:30; Stop 06/29/24 at 14:37; Status DC Methylprednisolone Sodium Succinate 40 mg ONCE ONCE IVP; Start 06/29/24 at 14:30; Stop 06/29/24 at 14:33; Status DC Albuterol 1 UDVIAL [id number] IH Last administered on 07/03/24at 06:25; Start 06/29/24 at 18:00; Stop 07/29/24 at 17:59 Benzonatate 200 mg Q8H PO Last administered on 07/03/24at 05:52; Start 06/29/24 at 14:30; Stop 07/29/24 at 14:29 Vitamin B Complex/ Vit C/Folic Acid 1 cap DAILY PO Last administered on 07/02/24at 08:46; Start 06/30/24 at 09:00; Stop 07/30/24 at 08:59 Sodium Chloride 4 ml STK-MED ONCE IH; Start 06/29/24 at 18:32; Stop 06/29/24 at 18:33; Status DC Sodium Chloride 250 ml @ 0 mls/hr AD IV; Start 06/30/24 at 10:00; Stop 07/30/24 at 09:59 Sodium Chloride 1,000 ml @ 0 mls/hr ONCE IV Last administered on 07/02/24at 10:13; Start 06/30/24 at 10:00; Stop 07/30/24 at 09:59 Epoetin Placido-epbx 6,000 unit ONCE SQ Last administered on 06/30/24at 17:16; Start 06/30/24 at 14:30; Stop 07/01/24 at 09:13; Status DC Epoetin Placido-epbx 6,000 unit QWEEK SQ; Start 07/07/24 at 09:00; Stop 08/06/24 at 08:59 Loperamide HCl 4 mg ONCE ONCE PO Last administered on 07/02/24at 21:12; Start 07/02/24 at 21:00; Stop 07/02/24 at 21:01; Status DC YUMI AGUILA MD Jul 03, 2024 10:12
--- NOTE | 2024-07-03 12:28 | PN ---
SUBJECTIVE: A 73-year-old male with history of diabetes mellitus and hypertension. The patient with a history of end-stage renal disease, on dialysis 3 times per week. The patient initially presented, found to have underlying pneumonia. The patient was started on IV antibiotics as well as the aggressive pulmonary toilet. The patient's pulmonary symptoms have greatly improved. The patient noted to have leukopenia, has been started on Neupogen and the patient is being seen as a followup visit for all of the above. REVIEW OF SYSTEMS: GENERAL: The patient is feeling weak and tired. HEENT: No change in vision. No change in hearing. CARDIOVASCULAR: There is no current chest pain or palpitations. PULMONARY: Shortness of breath is improved. GASTROINTESTINAL: He is tolerating diet. MUSCULOSKELETAL: Complains of weakness. PHYSICAL EXAMINATION: VITAL SIGNS: Blood pressure 134/59, pulse 90s. GENERAL: Chronically ill male, elderly, lying in bed on medical floor. HEENT: Head is atraumatic. Pupils equal, roving to light. Oropharynx is without exudate. Nares clear. NECK: There is no JVP. There is no thyromegaly, no mass. CARDIOVASCULAR: Regular. There is no S3, S4 gallop. LUNGS: Coarse with equal thoracic movement. ABDOMEN: Soft, nondistended, nontender. EXTREMITIES: Reveal no clubbing, no cyanosis. NEUROLOGIC: He is awake. He is alert. LABORATORY DATA: Hemoglobin 9.6, hematocrit 29, white cell count is 2000. Sodium 140, potassium 3.8, BUN 30, creatinine 5.8. IMPRESSION: 1. Pneumonia. 2. Diabetes mellitus. 3. Hypertension. 4. End-stage renal disease. PLAN: The patient's pulmonary symptoms have greatly improved. The patient remains on the antibiotics as well as the pulmonary toilet. The patient with underlying leukopenia and being seen by hematology. We will continue to follow closely. Once the patient is discharged, the patient will follow up at the dialysis unit. TID: [id number] RECEIPT: [id number]
--- NOTE | 2024-07-03 14:19 | PN ---
INFECTIOUS DISEASE PROGRESS NOTE Date of Service: Jul 03, 2024 SUBJECTIVE: This is a 73-year-old male patient with past medical history of COPD and end- stage renal disease, on dialysis who was admitted with chief complaint of shortness of breaths, cough and fever. On admission patient had a fever of 101.1. A chest x-ray showed mild patchy infiltrate left lung base. A CT of the chest showed multiple patches of infiltrates in the left lung consistent with multifocal pneumonia. Sputum culture has been collected. A urinalysis was positive. Patient was seen and examined at bedside in room 424. Patient is awake, alert and oriented x 3. Patient is sitting up on the bedside chair in no distress. Patient was dialyzed yesterday and 1.9 L were removed. Patient denying nausea or vomiting at this time. No fever, temperature is 98.4. Continues on vancomycin per pharmacy protocol, Zosyn IV and doxycycline. We will continue to follow patient's care. PHYSICAL EXAM EYES: Anicteric. Pupils equal and reactive. HENT: No oral thrush seen, moist Oral mucosa. NECK: Supple, no JVD or thyromegaly. LUNGS: Bilateral crackles. Wheezing. Productive cough. CARDIOVASCULAR: S1, S2 regular. No murmur heard. ABDOMEN: Soft, non tender, bowel sounds present, no organomegaly. CENTRAL NERVOUS SYSTEM: Awake, alert, oriented x 3. SKIN: No rashes, no swelling. LYMPHATICS: No peripheral lymphadenopathy. MUSCULOSKELETAL: No joint swelling, erythema or tenderness. EXTREMITIES: No cyanosis or clubbing. BACK: No deformity, no pressure ulcer. GENITOURINARY: No dysuria or hematuria. Vital Sign (Last 12 Hours) 07/03/24 07/03/24 07/03/24 07/03/24 04:00 06:27 06:33 08:00 Temp 98.2 98.4 Pulse 87 92 92 95 Resp 18 20 20 16 B/P (MAP) 121/38 134/59 Pulse Ox 94 96 O2 Delivery Room Air N/A Room Air Room Air FiO2 21 21 07/03/24 07/03/24 07/03/24 11:04 11:05 12:00 Temp 98.1 Pulse 72 72 99 Resp 20 20 18 B/P (MAP) 106/61 Pulse Ox 97 O2 Delivery N/A Room Air Room Air FiO2 21 Intake & Output (last 24hrs) 07/02/24 07/02/24 07/03/24 15:00 23:00 07:00 Intake Total 500 ml 50.0 ml Output Total 1900 ml 200 ml Balance -1900 ml 300 ml 50.0 ml LABS: Laboratory: Test 07/03/24 12:08 07/03/24 04:33 07/02/24 04:49 Range/Units Whole Blood Glucose 127 H 70-110 MG/DL White Blood Count 2.2 L 4.8-10.8 K/uL Red Blood Count 3.31 L 4.50-6.20 MIL/uL Hemoglobin 9.6 L 14.0-18.0 g/dL Hematocrit 29.7 L 42-54 % Mean Corpuscular Volume 89.7 79-99 fL Mean Corpuscular Hemoglobin 29.0 27.0-33.0 pg Mean Corpuscular Hemoglobin Concent 32.3 32.0-36.0 g/dL Red Cell Distribution Width 15.8 H 11.0-15.5 % Platelet Count 61 L 130-400 K/uL Mean Platelet Volume 10.7 H 7.5-10.5 fL Immature Granulocyte % (Auto) 0.5 0-1 % Neutrophils (%) (Auto) 42.2 40.0-77.0 % Lymphocytes (%) (Auto) 39.2 21.0-51.0 % Monocytes (%) (Auto) 12.2 3.0-13.0 % Eosinophils (%) (Auto) 5.0 0.0-8.0 % Basophils (%) (Auto) 0.9 0.0-5.0 % Neutrophils # (Auto) 0.9 L 1.8-7.7 K/uL Lymphocytes # (Auto) 0.9 L 1.0-4.8 K/uL Monocytes # (Auto) 0.3 0.1-1.0 K/uL Eosinophils # (Auto) 0.11 0.00-0.70 K/uL Basophils # (Auto) 0.02 0.00-0.20 K/uL Absolute Immature Granulocyte (auto 0.01 0-1 K/uL Nucleated Red Blood Cells 0.0 0.0-0.19 % Sodium Level 140 136-145 mmol/L Potassium Level 3.8 3.5-5.1 mmol/L Chloride Level 100 L 101-111 mmol/L Carbon Dioxide Level 34 H 21-32 mmol/L Blood Urea Nitrogen 30 H 7-18 mg/dL Creatinine 5.8 H 0.5-1.3 mg/dL Glomerular Filtration Rate Calc 10 >90 mL/min Random Glucose 101 70-105 mg/dL Total Calcium 8.9 8.5-10.1 mg/dL Magnesium Level 1.80 1.80-2.40 mg/dL Segmented Neutrophils % 63 40-70 % Lymphocytes % (Manual) 35 22-44 % Monocytes % (Manual) 1 L 2-9 % Differential Comment MANUAL DIFFERENTIAL Reactive Lymphocytes 1 H 0-0 % White Cell Morphology Comment VACUOLATION 1+ Platelet Morphology Comment DECREASED Red Blood Cell Morphology See comments Phosphorus Level 5.9 H 2.5-4.9 mg/dL Vancomycin Level 23.1 20.0-30.0 mcg/mL ASSESSMENT: Multifocal pneumonia. Urinary tract infection. Sepsis Diabetes mellitus. End-stage renal disease, on dialysis. Pancytopenia. PLAN: Continue vancomycin per pharmacy protocol. Continue Zosyn. Continue doxycycline. Glucometer checks a.c./hs and cover with insulin per sliding scale protocol. Continue bronchodilators. Continue DVT prophylaxis. Continue dialysis as recommended by counselor at law. We will monitor electrolytes. Hematology has been consulted and evaluated patient. This case was reviewed and discussed with my supervising physician and the above assessment and plan was formulated and agreed upon. ATTESTATION BY PHYSICIAN I have seen and examined the patient. I reviewed the documentation, medical dec ision making, and treatment plan as noted by the mid-level provider above. I agree with the findings and plan of care. DEMETRIA MICHELLE MD, MIRTA L [facility] Jul 03, 2024 14:19
[2024-07-03] MEDS: TBO-FILGRASTIM 300 MCG/0.5 ML ML SQ SCH (16:22)
[2024-07-04] VITALS (13 sets, daily range): BP systolic 114–150; BP diastolic 50–64; PULSE 84–103; RESP 18–21; TEMP 97.9–98.7; O2SAT 93–100
--- NOTE | 2024-07-04 13:38 | PN ---
NEPHROLOGY PROGRESS NOTE Date/Time Patient Seen: Jul 04, 2024 SUBJECTIVE: This is a 73-year-old male with morbid obesity, hypertension, end stage renal disease on hemodialysis Thursday, and COPD, He presented to the hospital with complaints of fever, cough and shortness of breath. In the ER, the patient was found to have temperature of 101.1. Chest x-ray shows mild patchy infiltrates. Urinalysis was positive, He has been tolerating dialysis without difficulty. Dialysis planned for tomorrow. Continues on antibiotics. Blood cultures are negative He continues to be followed by Hematology. Continues on Epogen on dialysis days He was seen in the medical floor, no acute distress No family at the bedside Progress remains guarded REVIEW OF SYSTEMS: GENERAL:Positive for cough NEUROLOGIC: Negative for any blurry vision, blind spots, double vision, facial asymmetry, dysphagia, dysarthria, hemiparesis, hemisensory deficits, vertigo, ataxia. HEENT: Negative for any head trauma, neck trauma, neck stiffness, photophobia, phonophobia, sinusitis, rhinitis. CARDIAC: Negative for any chest pain, dyspnea on exertion, paroxysmal nocturnal dyspnea, peripheral edema. PULMONARY: Negative for any shortness of breath, wheezing, COPD, or TB exposure. GASTROINTESTINAL: Negative for any abdominal pain, nausea, vomiting, bright red blood per rectum, melena. GENITOURINARY: Negative for any dysuria, hematuria, incontinence. INTEGUMENTARY: Negative for any rashes, cuts, insect bites. RHEUMATOLOGIC: Negative for any joint pains, photosensitive rashes, history of vasculitis or kidney problems. HEMATOLOGIC: Negative for any abnormal bruising, frequent infections or bleeding. Vital Signs (last 8hr) Date Time Temp Pulse Resp B/P (MAP) Pulse Ox O2 Delivery O2 Flow Rate FiO2 07/01/24 12:00 98.2 90 18 128/51 98 Room Air 07/01/24 11:26 86 18 07/01/24 11:25 86 18 N/A Room Air 21 07/01/24 08:00 98.8 114 20 116/53 96 Room Air 07/01/24 07:24 91 18 07/01/24 07:23 91 18 N/A Room Air 21 PHYSICAL EXAM: GENERAL: Alert and oriented x 3. No acute distress. Well-nourished. EYES: EOMI. Anicteric. HENT: Moist mucous membranes. No scleral icterus. No cervical lymphadenopathy. LUNGS: Clear to auscultation bilaterally. No accessory muscle use. CARDIOVASCULAR: Regular rate and rhythm. No murmur. No JVD. ABDOMEN: Soft, non-tender and non-distended. No palpable masses. EXTREMITIES: No edema. Non-tender. SKIN: No rashes or lesions. Warm. NEUROLOGIC: No focal neurological deficits. CN II-XII grossly intact, but not individually tested. PSYCHIATRIC: Cooperative. Appropriate mood and affect. Current Medications Medications (Trade) Dose Ordered Sig/Omid Route PRN Reason Start Time Stop Time Status Last Admin Dose Admin Acetaminophen (TYLenol 325MG TAB) 650 mg Q6H PRN PO MILD PAIN (1-3) 06/29/24 08:00 07/29/24 07:59 Albuterol (DUOneb) 1 UDVIAL [id number] IH 06/29/24 18:00 07/29/24 17:59 07/01/24 11:26 1 UDVIAL Albuterol (DUOneb) 1 UDVIAL [id number] IH 06/29/24 18:00 06/29/24 14:37 DC Azithromycin 250 ml @ 250 mls/hr Q24H IVPB 06/29/24 06:00 06/29/24 12:41 DC 06/29/24 05:50 250 MLS/HR Azithromycin (Zithromax) 250 mg Q24H PO 06/29/24 05:30 06/29/24 12:43 DC Benzonatate (Tessalon 100mg Caps) 200 mg Q8H PO 06/29/24 14:30 07/29/24 14:29 07/01/24 06:52 200 MG Benzonatate (Tessalon 100mg Caps) 200 mg Q8H PRN PO COUGH 06/29/24 14:30 06/29/24 14:37 DC Ceftriaxone Sodium (ROCEphine 1G INJ) 1 gm Q24H IVPB 06/29/24 08:00 06/29/24 12:41 DC Doxycycline Hyclate (Doxycycline Hyclate) 100 mg BID PO 06/29/24 09:00 07/09/24 08:59 07/01/24 09:09 100 MG Enoxaparin Sodium (Lovenox) 30 mg DAILY SQ 06/29/24 09:00 07/01/24 11:27 DC 06/29/24 08:55 30 MG Epoetin Placido-epbx (Retacrit) 6,000 unit ONCE SQ 06/30/24 14:30 07/01/24 09:13 DC 06/30/24 17:16 6,000 UNIT Epoetin Placido-epbx (Retacrit) 6,000 unit QWEEK SQ 07/07/24 09:00 08/06/24 08:59 Insulin Human Lispro (HumaLOG LISpro 100 UNIT/ML 3ML) INSULIN SLIDING SCAL... ACHS SQ 06/29/24 11:30 07/29/24 11:29 Ondansetron HCl (zoFRAN 4MG TABLET) 4 mg Q6H PRN PO NAUSEA/VOMITING 06/29/24 08:00 07/29/24 07:59 06/29/24 10:44 4 MG Piperacillin Sod/ Tazobactam Sod (Zosyn 3.375gm+NS 50ml) 3.375 gm Q12H IV 06/29/24 13:00 07/09/24 12:59 07/01/24 13:22 3.375 GM Sodium Chloride 250 ml @ 0 mls/hr AD IV 06/30/24 10:00 07/30/24 09:59 Sodium Chloride 1,000 ml @ 0 mls/hr ONCE IV 06/30/24 10:00 07/30/24 09:59 06/30/24 12:20 100 MLS/HR Sodium Chloride 1,000 ml @ 50 mls/hr Q20H IV 06/29/24 06:00 07/01/24 09:06 DC 06/29/24 06:51 50 MLS/HR Vancomycin HCl (Vancomycin 750mg) 750 mg QTUTHSA[DIALYSIS] IVPB 06/30/24 16:00 07/10/24 15:59 06/30/24 17:11 750 MG Vancomycin HCl (Vancomycin Protocol) 1 each AD IV 06/29/24 13:00 07/13/24 12:59 Vitamin B Complex/ Vit C/Folic Acid (Nephrovite Tablet) 1 cap DAILY PO 06/30/24 09:00 07/30/24 08:59 07/01/24 09:09 1 [facility] LABORATORY: [ ] Hematology Labs: Test 07/03/24 04:33 Range/Units White Blood Count 2.2 L 4.8-10.8 K/uL Red Blood Count 3.31 L 4.50-6.20 MIL/uL Hemoglobin 9.6 L 14.0-18.0 g/dL Hematocrit 29.7 L 42-54 % Mean Corpuscular Volume 89.7 79-99 fL Mean Corpuscular Hemoglobin 29.0 27.0-33.0 pg Mean Corpuscular Hemoglobin Concent 32.3 32.0-36.0 g/dL Red Cell Distribution Width 15.8 H 11.0-15.5 % Platelet Count 61 L 130-400 K/uL Mean Platelet Volume 10.7 H 7.5-10.5 fL Immature Granulocyte % (Auto) 0.5 0-1 % Neutrophils (%) (Auto) 42.2 40.0-77.0 % Lymphocytes (%) (Auto) 39.2 21.0-51.0 % Monocytes (%) (Auto) 12.2 3.0-13.0 % Eosinophils (%) (Auto) 5.0 0.0-8.0 % Basophils (%) (Auto) 0.9 0.0-5.0 % Neutrophils # (Auto) 0.9 L 1.8-7.7 K/uL Lymphocytes # (Auto) 0.9 L 1.0-4.8 K/uL Monocytes # (Auto) 0.3 0.1-1.0 K/uL Eosinophils # (Auto) 0.11 0.00-0.70 K/uL Basophils # (Auto) 0.02 0.00-0.20 K/uL Absolute Immature Granulocyte (auto 0.01 0-1 K/uL Nucleated Red Blood Cells 0.0 0.0-0.19 % Chemistry Labs: Test 07/04/24 11:20 07/03/24 04:33 Range/Units Whole Blood Glucose 133 H 70-110 MG/DL Sodium Level 140 136-145 mmol/L Potassium Level 3.8 3.5-5.1 mmol/L Chloride Level 100 L 101-111 mmol/L Carbon Dioxide Level 34 H 21-32 mmol/L Blood Urea Nitrogen 30 H 7-18 mg/dL Creatinine 5.8 H 0.5-1.3 mg/dL Glomerular Filtration Rate Calc 10 >90 mL/min Random Glucose 101 70-105 mg/dL Total Calcium 8.9 8.5-10.1 mg/dL Magnesium Level 1.80 1.80-2.40 mg/dL Diagnostic: REASON: SOB/TACHYPNEA ORDERING PHYSICIAN: DEMETRIA MICHELLE MD PROCEDURE: CHEST WO - CT CHEST W/O CONTRAST CT CHEST W/O CONTRAST REASON: SOB/TACH[place]NEA COMPARISON: None. TECHNIQUE: Multiple sequential axial images of the chest were obtained from the thoracic inlet through the upper pole of the kidneys without intravenous contrast administration. FINDINGS: There is a focal 4 cm patch of acute appearing infiltrate in the left lower lobe. There is a small focus of infiltrate in the left lung base as well as some infiltrate in the lingula. Findings are consistent with multifocal pneumonia on the left. There is decreased volume in the right lung but no acute appearing infiltrate and no focal mass. There is cardiomegaly. There is no vascular congestion or pleural effusion. There is no hilar or mediastinal lymphadenopathy. Chest wall structures appear normal. There is mild enlargement of the liver and moderate to marked enlargement of the spleen. There is no ascites and there are no obvious varices. Upper abdominal structures appear otherwise unremarkable. IMPRESSION: 1. Multiple patches of infiltrate in the left lung consistent with multifocal pneumonia. 2. Diffuse volume loss on the right with no acute appearing focal abnormality. 3. Cardiomegaly without vascular congestion. 4. Hepatosplenomegaly. CT was performed with one or more following dose reduction techniques: automated exposure control, adjustment of the mA and kv according to patient's size, or use of a iterative reconstruction technique. DICTATED BY: MARIA ESTHER GARY MD DATE: 06/29/24 1535 REASON: pneumonia, sepsis ORDERING PHYSICIAN: ROSELIA CRANDALL MD PROCEDURE: CXR1VW - CHEST 1VW CHEST 1VW REASON: pneumonia, sepsis COMPARISON: 12/31/2012 FINDINGS: There is mild patchy infiltrate in the left lower lobe. Lungs are otherwise clear. Heart size is normal. Mediastinum and bony thorax appear unremarkable. IMPRESSION: 1. Mild patchy infiltrate left lung base. DICTATED BY: MARIA ESTHER GARY MD DATE: 06/29/24 0932 DIAGNOSTICS / RADIOLOGY: ASSESSMENT: Fluid overload Anemia End-stage renal disease Multifocal pneumonia Urinary tract infection Sepsis Diabetes mellitus. PLAN: Labs and Diagnostics/ Radiology personally reviewed and interpreted by myself and supervising physician We have reviewed dialysis and external records in detail Continue dialysis schedule Thursday Continue with antibiotics. Follow Hematology recommendation 1.5 L fluid restriction Continue to monitor H&H Epogen on dialysis days, as needed Continue with frequent monitoring of renal function, anemia, and electrolytes Order CBC, BMP, and electrolytes in the morning May use Dilaudid 0.5 mg IV every 6 hours as needed for severe pain Monitor blood pressure adjust medication doses as needed Maintain normotensive state Strict intake, output, and daily weight should be monitored Please renally adjust medications. Avoid nephrotoxics and nonsteroidal drugs. We will continue to monitor the patient closely We have discussed with the other team physicians in detail about the care plan ATTESTATION BY PHYSICIAN I have seen and examined the patient. I reviewed the documentation, medical decision making, and treatment plan as noted by the mid-level provider above. I agree with the findings and plan of care. MARTINA WEINSTEIN MD, [facility] Jul 04, 2024 13:38
--- NOTE | 2024-07-04 14:11 | PN ---
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 With the patient received chemotherapy treatment for 6 cycles. The patient never follow-up with me in 4 more than 2 years. This patient with end-stage renal disease and hemodialysis. Patient was sent because of pancytopenia. Bone marrow biopsy was done which showed patient to have normal cellular bone marrow. But the patient was found 20-30% of non-Hodgkin lymphoma consistent with mantle cell lymphoma. PET CT scan was done in February 2023 which showed new hypermetabolic adenopathy above and below the diaphragm. There is enlargement of the spleen but with no increased activity. Patient denies any obvious bleeding. It seems the patient receiving iron and Procrit during hemodialysis. Patient was found to have recurrence of his mantle cell lymphoma with the patient was started on chemotherapy treatment with rituximab and and Revlimid. Patient received 4 weeks of rituximab. Patient actually receiving Revlimid. With the patient doing very well. PET CT scan was done 06/29/2023 which showed persistent but improving hyp ermetabolic lymphadenopathy involving multiple nodule station above and below diaphragm. There is improving splenomegaly. Otherwise no PET evidence of new lesion or metastatic disease elsewhere Patient was admitted to the hospital. Bone marrow biopsy was done 11/10/2023 showed mantle cell lymphoma only 1-2%. Cellularity of the bone marrow was hypocellular with 10-15%. PET CT scan was done 12/03/2023 which showed mildly increased uptake to the lymph node above the diaphragm. There is no definitive PET CT scan elsewhere suspicious for malignancy Patient supposed to be on lenalidomide which was started by the patient. Patient is not taking any medication This patient white blood count continues to be decreased at 2.2K. There was no CBC done today. Physical Exam: General: No acute distress. Well-developed. HEENT: Normocephalic. Atraumatic. EOMI. PERRLA. Moist mucous membranes. No oral lesions. Oral cavity is clear. Neck: Supple. No cervical adenopathy. No supraclavicular adenopathy. Spine: Nontender to percussion. Lungs: No increased work of breathing. No use of accessory muscles. Heart: Good peripheral perfusion. Abdomen: Soft. Extremities: No lower extremity edema. No cyanosis. No clubbing. Normal 2+ pulses bilaterally. Neurological: Intact. Impression: 1. History of mantle cell lymphoma diagnosed 09/2019 with the patient was treated with chemotherapy treatment. This patient went to complete remission but the patient was noncompliant and never follow-up for more than [address] scan was done in February 2023 which showed new hypermetabolic adenopathy above and below the diaphragm. There is enlargement of the spleen but with no increased activity. Patient have progression disease and patient to receive treatment with rituximab and Revlimid patient is receiving rituximab in the chemotherapy. Patient is noncompliant of taking his Revlimid Patient actually is not taking Revlimid. PET CT scan was done 12/03/2023 which showed mildly increased uptake to the lymph node above the diaphragm. There is no definitive PET CT scan elsewhere suspicious for malignancy 2. Anemia, which is improved 3. Thrombocytopenia. Platelet count 68 K 4. Neutropenia recent bone marrow biopsy done 11/06/2023 which showed 10-20% of B-cell lymphoma consistent with recurrent mantle cell lymphoma. 5. End-stage renal disease on hemodialysis. 6. Hypertension 7. Anticoagulation was warfarin 8. Sepsis 9. Healthcareassociated pneumonia 10. History of atrial fibrillation 11. Chemo induced neutropenia Plan: 1. PET CT scan was done 12/03/2023 which showed mildly increased uptake to the lymph node above the diaphragm. There is no definitive PET CT scan elsewhere suspicious for malignancy Patient finished treatment with rituximab weekly for 4 weeks. Patient is receiving Revlimid 5 mg p.o. daily after dialysis. We will continue same treatment. With the patient look like he is stable. Bone marrow biopsy was done 11/10/2023 showed mantle cell lymphoma only 1-2%. Cellularity of the bone marrow was hypocellular with 10-15%. 2. We will ask for CBC to be done today. We will evaluate the need for transfusion 3. Will hold any chemotherapy treatment on this patient at this time 4. This patient actually could benefit from Granix especially the patient white count continue to be low or even going lower. Especially with this patient actually receiving antibiotic treatment for infection If the infection did not resolve then this patient may be will need IVIG 5. There was hypersegmented neutrophils. This patient to be started on folic acid 1 mg p.o. daily and vitamin B12 1000 mcg p.o. daily. 6. CBC and chemistry daily 7. Continue antibiotic treatment as per infectious disease specialist 8. Continue hemodialysis as per nephrology Vitals/Labs Vital Signs Date Time Temp Pulse Resp B/P (MAP) Pulse Ox O2 Delivery O2 Flow Rate FiO2 07/04/24 11:55 98.4 86 18 150/62 97 Room Air 21 07/04/24 07:50 0 Medications Current Medications Acetaminophen 500 mg ONCE ONCE PO; Start 06/29/24 at 05:30; Stop 06/29/24 at 05:41; Status DC Albuterol 1 UDVIAL ONCE ONCE IH Last administered on 06/29/24at 05:24; Start 06/29/24 at 05:30; Stop 06/29/24 at 05:31; Status DC Ceftriaxone Sodium 1 gm ONCE ONCE IVPB Last administered on 06/29/24at 05:26; Start 06/29/24 at 05:30; Stop 06/29/24 at 05:31; Status DC Azithromycin 250 mg Q24H PO; Start 06/29/24 at 05:30; Stop 06/29/24 at 12:43; Status DC Azithromycin 250 ml @ 250 mls/hr Q24H IVPB Last administered on 06/29/24at 05:50; Start 06/29/24 at 06:00; Stop 06/29/24 at 12:41; Status DC Sodium Chloride 1,000 ml @ 50 mls/hr Q20H IV Last administered on 06/29/24at 06:51; Start 06/29/24 at 06:00; Stop 07/01/24 at 09:06; Status DC Guaifenesin 200 mg ONCE ONCE PO Last administered on 06/29/24at 06:12; Start 06/29/24 at 06:00; Stop 06/29/24 at 06:03; Status DC Enoxaparin Sodium 30 mg DAILY SQ Last administered on 06/29/24at 08:55; Start 06/29/24 at 09:00; Stop 07/01/24 at 11:27; Status DC Doxycycline Hyclate 100 mg BID PO Last administered on 07/04/24at 09:50; Start 06/29/24 at 09:00; Stop 07/09/24 at 08:59 Ceftriaxone Sodium 1 gm Q24H IVPB; Start 06/29/24 at 08:00; Stop 06/29/24 at 12:41; Status DC Acetaminophen 650 mg Q6H PRN PO Last administered on 07/02/24at 10:04; Start 06/29/24 at 08:00; Stop 07/29/24 at 07:59 Ondansetron HCl 4 mg Q6H PRN PO Last administered on 06/29/24at 10:44; Start 06/29/24 at 08:00; Stop 07/29/24 at 07:59 Insulin Human Lispro INSULIN SLIDING SCAL... ACHS SQ; Start 06/29/24 at 11:30; Stop 07/29/24 at 11:29 Piperacillin Sod/ Tazobactam Sod 3.375 gm Q12H IV Last administered on 07/04/24at 00:13; Start 06/29/24 at 13:00; Stop 07/09/24 at 12:59 Vancomycin HCl 1 each AD IV; Start 06/29/24 at 13:00; Stop 07/13/24 at 12:59 Vancomycin HCl 250 ml @ 125 mls/hr ONCE ONCE IV Last administered on 06/29/24at 13:09; Start 06/29/24 at 13:00; Stop 06/29/24 at 14:59; Status DC Vancomycin HCl 750 mg QTUTHSA[DIALYSIS] IVPB Last administered on 07/02/24at 18:06; Start 06/30/24 at 16:00; Stop 07/10/24 at 15:59 Methylprednisolone Sodium Succinate 40 mg ONCE ONCE IVP Last administered on 06/29/24at 15:47; Start 06/29/24 at 14:30; Stop 06/29/24 at 14:31; Status DC Albuterol 1 UDVIAL [id number] IH; Start 06/29/24 at 18:00; Stop 06/29/24 at 14:37; Status DC Benzonatate 200 mg Q8H PRN PO; Start 06/29/24 at 14:30; Stop 06/29/24 at 14:37; Status DC Methylprednisolone Sodium Succinate 40 mg ONCE ONCE IVP; Start 06/29/24 at 14:30; Stop 06/29/24 at 14:33; Status DC Albuterol 1 UDVIAL [id number] IH Last administered on 07/04/24at 11:54; Start 06/29/24 at 18:00; Stop 07/29/24 at 17:59 Benzonatate 200 mg Q8H PO Last administered on 07/04/24at 05:46; Start 06/29/24 at 14:30; Stop 07/29/24 at 14:29 Vitamin B Complex/ Vit C/Folic Acid 1 cap DAILY PO Last administered on 07/04/24at 09:50; Start 06/30/24 at 09:00; Stop 07/30/24 at 08:59 Sodium Chloride 4 ml STK-MED ONCE IH; Start 06/29/24 at 18:32; Stop 06/29/24 at 18:33; Status DC Sodium Chloride 250 ml @ 0 mls/hr AD IV; Start 06/30/24 at 10:00; Stop 07/30/24 at 09:59 Sodium Chloride 1,000 ml @ 0 mls/hr ONCE IV Last administered on 07/02/24at 10:13; Start 06/30/24 at 10:00; Stop 07/30/24 at 09:59 Epoetin Placido-epbx 6,000 unit ONCE SQ Last administered on 06/30/24at 17:16; Start 06/30/24 at 14:30; Stop 07/01/24 at 09:13; Status DC Epoetin Placido-epbx 6,000 unit QWEEK SQ; Start 07/07/24 at 09:00; Stop 08/06/24 at 08:59 Loperamide HCl 4 mg ONCE ONCE PO Last administered on 07/02/24at 21:12; Start 07/02/24 at 21:00; Stop 07/02/24 at 21:01; Status DC YUMI AGUILA MD Jul 04, 2024 14:11
--- NOTE | 2024-07-04 21:47 | PN ---
INFECTIOUS DISEASE PROGRESS NOTE Date of Service: Jul 04, 2024 SUBJECTIVE: This is a 73-year-old male patient with past medical history of COPD and end- stage renal disease, on dialysis who was admitted with chief complaint of shortness of breaths, cough and fever. On admission patient had a fever of 101.1. A chest x-ray showed mild patchy infiltrate left lung base. A CT of the chest showed multiple patches of infiltrates in the left lung consistent with multifocal pneumonia. Sputum culture has been collected. A urinalysis was positive. Patient was seen and examined at bedside in room 424. Patient is awake, alert and oriented x 3. Patient is sitting up on the bedside chair in no distress. Continues on vancomycin per pharmacy protocol, Zosyn IV and doxycycline. We will continue to follow patient's care. PHYSICAL EXAM EYES: Anicteric. Pupils equal and reactive. HENT: No oral thrush seen, moist Oral mucosa. NECK: Supple, no JVD or thyromegaly. LUNGS: Bilateral crackles. Wheezing. Productive cough. CARDIOVASCULAR: S1, S2 regular. No murmur heard. ABDOMEN: Soft, non tender, bowel sounds present, no organomegaly. CENTRAL NERVOUS SYSTEM: Awake, alert, oriented x 3. SKIN: No rashes, no swelling. LYMPHATICS: No peripheral lymphadenopathy. MUSCULOSKELETAL: No joint swelling, erythema or tenderness. EXTREMITIES: No cyanosis or clubbing. BACK: No deformity, no pressure ulcer. GENITOURINARY: No dysuria or hematuria. Vital Sign (Last 12 Hours) 07/04/24 07/04/24 07/04/24 07/04/24 11:54 11:54 11:55 15:25 Temp 98.4 98.6 Pulse 95 95 86 86 Resp 18 18 18 18 B/P (MAP) 150/62 131/56 Pulse Ox 97 98 O2 Delivery N/A Room Air Room Air Room Air FiO2 21 21 21 07/04/24 07/04/24 07/04/24 07/04/24 18:45 18:46 20:00 20:00 Temp 97.9 Pulse 90 90 103 Resp 18 18 21 B/P (MAP) 135/64 Pulse Ox 97 93 O2 Delivery N/A Room Air Room Air Room Air* O2 Flow Rate 0 FiO2 21 21 21 Intake & Output (last 24hrs) 07/03/24 07/03/24 07/04/24 15:00 23:00 07:00 Intake Total 50.0 ml Balance 50.0 ml LABS: Laboratory: Test 07/04/24 19:24 07/03/24 04:33 Range/Units Whole Blood Glucose 104 70-110 MG/DL White Blood Count 2.2 L 4.8-10.8 K/uL Red Blood Count 3.31 L 4.50-6.20 MIL/uL Hemoglobin 9.6 L 14.0-18.0 g/dL Hematocrit 29.7 L 42-54 % Mean Corpuscular Volume 89.7 79-99 fL Mean Corpuscular Hemoglobin 29.0 27.0-33.0 pg Mean Corpuscular Hemoglobin Concent 32.3 32.0-36.0 g/dL Red Cell Distribution Width 15.8 H 11.0-15.5 % Platelet Count 61 L 130-400 K/uL Mean Platelet Volume 10.7 H 7.5-10.5 fL Immature Granulocyte % (Auto) 0.5 0-1 % Neutrophils (%) (Auto) 42.2 40.0-77.0 % Lymphocytes (%) (Auto) 39.2 21.0-51.0 % Monocytes (%) (Auto) 12.2 3.0-13.0 % Eosinophils (%) (Auto) 5.0 0.0-8.0 % Basophils (%) (Auto) 0.9 0.0-5.0 % Neutrophils # (Auto) 0.9 L 1.8-7.7 K/uL Lymphocytes # (Auto) 0.9 L 1.0-4.8 K/uL Monocytes # (Auto) 0.3 0.1-1.0 K/uL Eosinophils # (Auto) 0.11 0.00-0.70 K/uL Basophils # (Auto) 0.02 0.00-0.20 K/uL Absolute Immature Granulocyte (auto 0.01 0-1 K/uL Nucleated Red Blood Cells 0.0 0.0-0.19 % Sodium Level 140 136-145 mmol/L Potassium Level 3.8 3.5-5.1 mmol/L Chloride Level 100 L 101-111 mmol/L Carbon Dioxide Level 34 H 21-32 mmol/L Blood Urea Nitrogen 30 H 7-18 mg/dL Creatinine 5.8 H 0.5-1.3 mg/dL Glomerular Filtration Rate Calc 10 >90 mL/min Random Glucose 101 70-105 mg/dL Total Calcium 8.9 8.5-10.1 mg/dL Magnesium Level 1.80 1.80-2.40 mg/dL ASSESSMENT: Multifocal pneumonia. Urinary tract infection. Sepsis Diabetes mellitus. End-stage renal disease, on dialysis. Pancytopenia. PLAN: Continue vancomycin per pharmacy protocol. Continue Zosyn. Continue doxycycline. Glucometer checks a.c./hs and cover with insulin per sliding scale protocol. Continue bronchodilators. Continue DVT prophylaxis. Continue dialysis as recommended by director retirement. We will monitor electrolytes. Hematology has been consulted and evaluated patient. This case was reviewed and discussed with my supervising physician and the above assessment and plan was formulated and agreed upon. ATTESTATION BY PHYSICIAN I have seen and examined the patient. I reviewed the documentation, medical decision making, and treatment plan as noted by the mid-level provider above. I agree with the findings and plan of care. DEMETRIA MICHELLE MD, [facility] Jul 04, 2024 21:47
[2024-07-05] VITALS (25 sets, daily range): BP systolic 103–135; BP diastolic 43–70; PULSE 85–116; RESP 16–21; TEMP 97.5–98.7; O2SAT 97–99
[2024-07-05 05:35] LABS: MEAN CORPUSCULAR HEMOGLOBIN 29.4 pg (27.0-33.0); MEAN CORPUSCULAR HGB CONC 32.6 g/dL (32.0-36.0); MEAN CORPUSCULAR VOLUME 90.1 fL (79-99); RED BLOOD CELL COUNT(AUTO) 3.44 MIL/uL (4.50-6.20); RED CELL DISTRIBUTION WIDTH 15.9 % (11.0-15.5); WHITE BLOOD COUNT (AUTO) 9.8 K/uL (4.8-10.8)
[2024-07-05 06:01] LABS: MAGNESIUM 1.8 mg/dL (1.80-2.40)
[2024-07-05 06:07] LABS: CREATININE 8.7 mg/dL (0.5-1.3)
--- NOTE | 2024-07-05 13:52 | PN ---
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 With the patient received chemotherapy treatment for 6 cycles. The patient never follow-up with me in 4 more than 2 years. This patient with end-stage renal disease and hemodialysis. Patient was sent because of pancytopenia. Bone marrow biopsy was done which showed patient to have normal cellular bone marrow. But the patient was found 20-30% of non-Hodgkin lymphoma consistent with mantle cell lymphoma. PET CT scan was done in February 2023 which showed new hypermetabolic adenopathy above and below the diaphragm. There is enlargement of the spleen but with no increased activity. Patient denies any obvious bleeding. It seems the patient receiving iron and Procrit during hemodialysis. Patient was found to have recurrence of his mantle cell lymphoma with the patient was started on chemotherapy treatment with rituximab and and Revlimid. Patient received 4 weeks of rituximab. Patient actually receiving Revlimid. With the patient doing very well. PET CT scan was done 06/29/2023 which showed persistent but improving hypermetabolic lymphadenopathy involving multiple nodule station above and below diaphragm. There is improving splenomegaly. Otherwise no PET evidence of new lesion or metastatic disease elsewhere Patient was admitted to the hospital. Bone marrow biopsy was done 11/10/2023 showed mantle cell lymphoma only 1-2%. Cellularity of the bone marrow was hypocellular with 10-15%. PET CT scan was done 12/03/2023 which showed mildly increased uptake to the lymph node above the diaphragm. There is no definitive PET CT scan elsewhere suspicious for malignancy Patient supposed to be on lenalidomide which was started by the patient. Patient is not taking any medication Patient have CBC done today. White blood count 9.8K. Physical Exam: General: No acute distress. Well-developed. HEENT: Normocephalic. Atraumatic. EOMI. PERRLA. Moist mucous membranes. No oral lesions. Oral cavity is clear. Neck: Supple. No cervical adenopathy. No supraclavicular adenopathy. Spine: Nontender to percussion. Lungs: No increased work of breathing. No use of accessory muscles. Heart: Good peripheral perfusion. Abdomen: Soft. Extremities: No lower extremity edema. No cyanosis. No clubbing. Normal 2+ pulses bilaterally. Neurological: Intact. Impression: 1. History of mantle cell lymphoma diagnosed 09/2019 with the patient was treated with chemotherapy treatment. This patient went to complete remission but the patient was noncompliant and never follow-up for more than [address] scan was done in February 2023 which showed new hypermetabolic adenopathy above and below the diaphragm. There is enlargement of the spleen but with no increased activity. Patient have progression disease and patient to receive treatment with rituximab and Revlimid patient is receiving rituximab in the chemotherapy. Patient is noncompliant of taking his Revlimid Patient actually is not taking Revlimid. PET CT scan was done 12/03/2023 which showed mildly increased uptake to the lymph node above the diaphragm. There is no definitive PET CT scan elsewhere suspicious for malignancy 2. Anemia, which is improved 3. Thrombocytopenia. Platelet count 68 K 4. Neutropenia recent bone marrow biopsy done 11/06/2023 which showed 10-20% of B-cell lymphoma consistent with recurrent mantle cell lymphoma. 5. End-stage renal disease on hemodialysis. 6. Hypertension 7. Anticoagulation was warfarin 8. Sepsis 9. Healthcareassociated pneumonia 10. History of atrial fibrillation 11. Chemo induced neutropenia Plan: 1. White blood count today is 9.8K. Please stop Granix 2. CBC daily. Platelet count today 55K. 3. Will continue to hold chemotherapy treatment on this patient at this time 4. Continue folic acid 1 mg p.o. daily and vitamin B12 1000 mcg p.o. daily. 5. Continue antibiotic treatment as per infectious disease specialist Vitals/Labs Vital Signs Date Time Temp Pulse Resp B/P (MAP) Pulse Ox O2 Delivery O2 Flow Rate FiO2 07/05/24 11:28 98.1 94 20 109/53 100 Room Air 07/05/24 07:50 0 Laboratory Tests 07/05/24 05:18 Medications Current Medications Acetaminophen 500 mg ONCE ONCE PO; Start 06/29/24 at 05:30; Stop 06/29/24 at 05:41; Status DC Albuterol 1 UDVIAL ONCE ONCE IH Last administered on 06/29/24at 05:24; Start 06/29/24 at 05:30; Stop 06/29/24 at 05:31; Status DC Ceftriaxone Sodium 1 gm ONCE ONCE IVPB Last administered on 06/29/24at 05:26; Start 06/29/24 at 05:30; Stop 06/29/24 at 05:31; Status DC Azithromycin 250 mg Q24H PO; Start 06/29/24 at 05:30; Stop 06/29/24 at 12:43; Status DC Azithromycin 250 ml @ 250 mls/hr Q24H IVPB Last administered on 06/29/24at 05:50; Start 06/29/24 at 06:00; Stop 06/29/24 at 12:41; Status DC Sodium Chloride 1,000 ml @ 50 mls/hr Q20H IV Last administered on 06/29/24at 06:51; Start 06/29/24 at 06:00; Stop 07/01/24 at 09:06; Status DC Guaifenesin 200 mg ONCE ONCE PO Last administered on 06/29/24at 06:12; Start 06/29/24 at 06:00; Stop 06/29/24 at 06:03; Status DC Enoxaparin Sodium 30 mg DAILY SQ Last administered on 06/29/24at 08:55; Start 06/29/24 at 09:00; Stop 07/01/24 at 11:27; Status DC Doxycycline Hyclate 100 mg BID PO Last administered on 07/05/24at 09:46; Start 06/29/24 at 09:00; Stop 07/09/24 at 08:59 Ceftriaxone Sodium 1 gm Q24H IVPB; Start 06/29/24 at 08:00; Stop 06/29/24 at 12:41; Status DC Acetaminophen 650 mg Q6H PRN PO Last administered on 07/04/24at 22:56; Start 06/29/24 at 08:00; Stop 07/29/24 at 07:59 Ondansetron HCl 4 mg Q6H PRN PO Last administered on 06/29/24at 10:44; Start 06/29/24 at 08:00; Stop 07/29/24 at 07:59 Insulin Human Lispro INSULIN SLIDING SCAL... ACHS SQ; Start 06/29/24 at 11:30; Stop 07/29/24 at 11:29 Piperacillin Sod/ Tazobactam Sod 3.375 gm Q12H IV Last administered on 07/05/24at 00:41; Start 06/29/24 at 13:00; Stop 07/09/24 at 12:59 Vancomycin HCl 1 each AD IV; Start 06/29/24 at 13:00; Stop 07/13/24 at 12:59 Vancomycin HCl 250 ml @ 125 mls/hr ONCE ONCE IV Last administered on 06/29/24at 13:09; Start 06/29/24 at 13:00; Stop 06/29/24 at 14:59; Status DC Vancomycin HCl 750 mg QTUTHSA[DIALYSIS] IVPB Last administered on 07/02/24at 18:06; Start 06/30/24 at 16:00; Stop 07/10/24 at 15:59 Methylprednisolone Sodium Succinate 40 mg ONCE ONCE IVP Last administered on 06/29/24at 15:47; Start 06/29/24 at 14:30; Stop 06/29/24 at 14:31; Status DC Albuterol 1 UDVIAL [id number] IH; Start 06/29/24 at 18:00; Stop 06/29/24 at 14:37; Status DC Benzonatate 200 mg Q8H PRN PO; Start 06/29/24 at 14:30; Stop 06/29/24 at 14:37; Status DC Methylprednisolone Sodium Succinate 40 mg ONCE ONCE IVP; Start 06/29/24 at 14:30; Stop 06/29/24 at 14:33; Status DC Albuterol 1 UDVIAL [id number] IH Last administered on 07/05/24at 11:12; Start 06/29/24 at 18:00; Stop 07/29/24 at 17:59 Benzonatate 200 mg Q8H PO Last administered on 07/05/24at 05:56; Start 06/29/24 at 14:30; Stop 07/29/24 at 14:29 Vitamin B Complex/ Vit C/Folic Acid 1 cap DAILY PO Last administered on 07/05/24at 09:46; Start 06/30/24 at 09:00; Stop 07/30/24 at 08:59 Sodium Chloride 4 ml STK-MED ONCE IH; Start 06/29/24 at 18:32; Stop 06/29/24 at 18:33; Status DC Sodium Chloride 250 ml @ 0 mls/hr AD IV; Start 06/30/24 at 10:00; Stop 07/30/24 at 09:59 Sodium Chloride 1,000 ml @ 0 mls/hr ONCE IV Last administered on 07/05/24at 08:42; Start 06/30/24 at 10:00; Stop 07/30/24 at 09:59 Epoetin Placido-epbx 6,000 unit ONCE SQ Last administered on 06/30/24at 17:16; Start 06/30/24 at 14:30; Stop 07/01/24 at 09:13; Status DC Epoetin Placido-epbx 6,000 unit QWEEK SQ; Start 07/07/24 at 09:00; Stop 08/06/24 at 08:59 Loperamide HCl 4 mg ONCE ONCE PO Last administered on 07/02/24at 21:12; Start 07/02/24 at 21:00; Stop 07/02/24 at 21:01; Status DC YUMI AGUILA MD Jul 05, 2024 13:52
--- NOTE | 2024-07-05 21:01 | PN ---
SUBJECTIVE: The patient was seen several times. The patient has been seen for dialysis, seen multiple times today. The patient has no fever, chills or rigors. No cough, expectoration, or hemoptysis. No abdominal pain. No nausea or vomiting. No chest pain. PHYSICAL EXAMINATION: GENERAL: Pale, no other distress. VITAL SIGNS: Blood pressure has been 109/53, pulse is 94, respiratory rate is 20. HEENT: Head is atraumatic. Pupils are round and reactive. Sclerae are anicteric. Conjunctivae not pale. Oral mucosa is not dry. NECK: Without masses or bruits. Thyroid is palpable. Neck has no bruits. CHEST: Shows diminished breath sounds at both bases. Prolonged expiration. LABORATORY DATA: Labs have been reviewed. Old records reviewed. Labs have shown hemoglobin of 10, hematocrit is 31. PROBLEMS: Renal failure, anemia, underlying multiple other comorbidities. PLAN: Plan will be to continue monitoring. Follow up on renal function. Follow up on electrolytes. Intake, output, weight will be monitored. The patient was evaluated and seen for dialysis and seen multiple times. Overall condition remained critical and guarded. We have discussed with other team physicians. TID: [id number] RECEIPT: [id number]
--- NOTE | 2024-07-05 21:11 | PN ---
SUBJECTIVE: The patient has been evaluated and seen for dialysis and seen multiple times. This patient has renal failure, anemia, underlying multiple other comorbidities. He has underlying thrombocytopenia. The patient has a history of mantle cell lymphoma previously diagnosed, anemia, thrombocytopenia, neutropenia, hypertension, underlying history of pneumonia, atrial fibrillation and neutropenia. The patient has been on chemotherapy. No other associated finding. No other aggravating or relieving factor. PHYSICAL EXAMINATION: GENERAL: Pale, no other distress. VITAL SIGNS: Blood pressure is around 112/57, pulse 103, respiratory rate is 16. HEENT: Head is atraumatic. Pupils are round and reactive. Sclerae are anicteric. Conjunctivae not pale. NECK: Supple. No masses or bruits. Thyroid is palpable. Neck has no bruits. LABORATORY DATA: Labs have been reviewed with a hemoglobin 10. Other electrolytes reviewed. White cell count has been low. PROBLEMS: Renal failure, anemia, mantle cell lymphoma, weakness. PLAN: To continue dialysis support. Continue monitoring of electrolytes. Intake, output and weight will be monitored. The patient's condition is guarded. The patient was evaluated and seen for dialysis and seen multiple times. Thank you for this patient. I have discussed with other team physicians in detail. TID: [id number] RECEIPT: [id number]
--- NOTE | 2024-07-05 23:56 | DS ---
WOLF MURRY [facility] Jul 05, 2024 23:56
--- NOTE | 2024-07-06 00:30 | DS ---
DATE OF DISCHARGE: 07/05/2024 PRESENTING COMPLAINT: Cough, fever and shortness of breath. HOSPITAL COURSE: A 73-year-old male with history of obesity, hypertension, diabetes mellitus and leukemia, who presented to the hospital with above complaints. The patient was found to have sepsis due to multifocal pneumonia. He was started on antibiotic. He was also found to have leukopenia and thrombocytopenia. He was evaluated by Hematology. The patient WAS given Granix. Sputum culture shows normal miguel. The patient has multiple dialysis sessions during admission. He is much better clinically. Tolerating orally. FINAL DISCHARGE DIAGNOSES: * Sepsis. * Healthcare-associated pneumonia. * Pancytopenia. * Hypertension. * Diabetes mellitus. * Obesity. * History of leukemia. PLAN: * The patient to be discharged home. * The patient will be given levofloxacin. * Continue antihypertensive. * Continue antidiabetic. * Continue pain management. * Follow up with Oncology. * Follow up with primary care physician. * Monitor electrolytes and correct as needed. * The patient advised to be compliant with medical management. TID: [id number] RECEIPT: [id number]
[2024-07-07] MEDS ORDERED: EPOETIN ALFA-EPBX (NON-ESRD) 10,000 UNIT/ML VIAL SQ SCH (09:00)
== END 2024-07-05 17:00 | disposition home or self-care (01) | DRG 871 ==
LOC: EDH 04:52 → EDHIP 07:58 → 4DH 20:04
PROVIDERS: ADMIT Internal Medicine Infectious Disease; ATTEND Internal Medicine Infectious Disease
PROC: 5A1D70Z Performance of Urinary Filtration, Intermittent, Less than 6 Hours Per Day (ICD-10-PCS; principal; 2024-06-30)
PROC: 5A1D70Z Performance of Urinary Filtration, Intermittent, Less than 6 Hours Per Day (ICD-10-PCS; 2024-07-02)
PROC: 5A1D70Z Performance of Urinary Filtration, Intermittent, Less than 6 Hours Per Day (ICD-10-PCS; 2024-07-05)
DX: A41.9 Sepsis, unspecified organism (principal); J18.9 Pneumonia, unspecified organism; N18.6 End stage renal disease; N39.0 Urinary tract infection, site not specified; I13.2 Hypertensive heart and chronic kidney disease with heart failure and with stage 5 chronic kidney disease, or end stage renal disease; D61.818 Other pancytopenia; Y95 Nosocomial condition; Z99.2 Dependence on renal dialysis; E11.22 Type 2 diabetes mellitus with diabetic chronic kidney disease; E66.01 Morbid (severe) obesity due to excess calories; I48.91 Unspecified atrial fibrillation; R16.2 Hepatomegaly with splenomegaly, not elsewhere classified; D70.1 Agranulocytosis secondary to cancer chemotherapy; E78.5 Hyperlipidemia, unspecified; I50.9 Heart failure, unspecified; J20.9 Acute bronchitis, unspecified; T45.1X5A Adverse effect of antineoplastic and immunosuppressive drugs, initial encounter; Z83.3 Family history of diabetes mellitus; Z85.6 Personal history of leukemia; Z87.891 Personal history of nicotine dependence; Y92.89 Other specified places as the place of occurrence of the external cause
CPT/HCPCS: 36415; 71045; 71250; 80048; 80053; 80202; 81001; 82948; 83036; 83605; 83735; 83880; 84100; 84145; 84484; 85025; 85027; 86704; 86706; 86803; 87040; 87071; 87086; 87205; 87340; 87426; 87804; 87880; 90935; 93005; 94640; 94664; 96365; 96366; 96375; 99285; G0378; J0456; J0696; J1650; J2543; J2919; J7030; Q0162; J1447; J3370; Q5106

== ENCOUNTER 2024-10-29 | Emergency (ER) | payer OTHER ==
[~2024-10-29] VITALS: Ht 165.1 cm; Wt 82.6 kg
[~2024-10-29] MED LIST changes: +ALBUHFA IH; +DOCU100C33 PO; +FOLI1TAB85 PO; +HYDR-3421 PO; -REGADENOSON 0.4 MG/5 ML PF SYG IVP SCH; +ROPI5TAB24 PO; +TAMS-55 PO; +TRAZ-185 PO
[2024-10-29 00:18] VITALS: TEMP 98.4
--- NOTE | 2024-10-29 00:30 | ERN ---
General Chief Complaint: Other Problems Stated Complaint: SENT FROM [place] FOR EVALUATION OF HYPOTENSION Time Seen by MD: 00:14 Source: patient, family, EMS History of Present Illness Initial Comments A 74-year-old male with a history of BPH hypertension lymphoma end-stage renal disease on dialysis atrial fibrillation and is in the process of recovering from pneumonia. He was at his rehab facility recovering from a left femur fracture. The staff there became concerned because he had increased twitching in his arm. A single systolic blood pressure reading was low. EMS was called and in transit the patient's blood pressure was normal, he is afebrile, and has no systemic complaints. Timing/Duration: 1-3 hours Severity: mild Associated Symptoms: denies symptoms Allergies: Coded Allergies: No Known Drug Allergies (Verified Allergy, 12/31/12) Home Meds Reported Medications Albuterol Sulfate (Ventolin Hfa/Proventil Hfa/Proair Hfa) 90 Mcg Puff, 1 PUFF IH TID for 30 Days, #18 GM 0 Refills 09/27/24 Tamsulosin HCl (Flomax) 0.4 Mg Cap.er.24h, 1 CAP PO DAILY for 30 Days, #30 CAP 0 Refills 06/30/24 Ropinirole HCl (Ropinirole HCl) 5 Mg Tablet, 1 TAB PO HS for 30 Days, #30 TAB 0 Refills 06/30/24 Trazodone HCl (Trazodone HCl) 50 Mg Tablet, 50 MG PO HS PRN for SLEEP, TAB 06/30/24 Docusate Sodium (Docusate Sodium) 100 Mg Capsule, 1 CAP PO BID for constipation for 15 Days, #30 CAP 0 Refills 06/30/24 Hydroxyzine HCl (Hydroxyzine HCl) 25 Mg Tablet, 1 TAB PO TID for anxiety for 30 Days, #90 TAB 0 Refills 06/30/24 Vit B Cmplx 3/FA/Vit C/Biotin (Juany-Brit Rx Tablet) 1 Mg-60 Mg-300 Mcg Tablet, 1 TAB PO DAILY for 30 Days, #30 TAB 0 Refills 06/30/24 Past Medical History Past Medical History: A-Fib, COPD, Diabetes-Type II, Hypertension, Renal Failure Past Surgical History: Unknown Additional History Comments: BPH Constitutional: (-) chills, (-) diaphoresis, (-) fever, (-) malaise, (-) weakness, (-) other documentation EENTM: (-) eye pain, (-) blurred vision, (-) tearing, (-) double vision, (-) ear pain, (-) ear discharge, (-) nose pain, (-) nose congestion, (-) throat pain, (-) Throat swelling, (-) mouth pain, (-) tooth pain, (-) mouth swelling, (-) other documentation Respiratory: (+) cough Cardiovascular: (-) chest pain, (-) edema, (-) palpitations, (-) syncope, (-) dyspnea on exertion, (-) other documentation Gastrointestinal/Abdominal: (+) nausea Physical Exam General Appearance: (+) no apparent distress Orientation: (+) alert Head/Face Trauma: No Eye: bilateral eye normal inspection, bilateral eye PERRL, bilateral eye EOMI Ear, Nose, Throat: (+) hearing grossly normal, (+) normal ENT inspection, (+) moist mucous membraine Neck: (+) normal inspection, (+) supple, (+) no JVD Respiratory: (+) chest non-tender, (+) lungs clear, (+) well ventilated Heart: (+) regular, (+) murmur Vascular: (+) no edema, (+) normal peripheral pulse Gastrointestinal: (+) soft, (+) non-tender, (+) bowel sound present Results Laboratory and Microbiology Lab and Micro Result Laboratory Tests Test 10/29/24 00:58 White Blood Count 2.3 K/uL (4.8-10.8) L Red Blood Count 3.17 MIL/uL (4.50-6.20) L Hemoglobin 9.3 g/dL (14.0-18.0) L Hematocrit 28.9 % (42-54) L Mean Corpuscular Volume 91.2 fL (79-99) Mean Corpuscular Hemoglobin 29.3 pg (27.0-33.0) Mean Corpuscular Hemoglobin Concent 32.2 g/dL (32.0-36.0) Red Cell Distribution Width 16.9 % (11.0-15.5) H Platelet Count 35 K/uL (130-400) L Mean Platelet Volume 12.6 fL (7.5-10.5) H Immature Granulocyte % (Auto) 0.9 % (0-1) Neutrophils (%) (Auto) 45.6 % (40.0-77.0) Lymphocytes (%) (Auto) 36.8 % (21.0-51.0) Monocytes (%) (Auto) 12.3 % (3.0-13.0) Eosinophils (%) (Auto) 3.5 % (0.0-8.0) Basophils (%) (Auto) 0.9 % (0.0-5.0) Neutrophils # (Auto) 1.0 K/uL (1.8-7.7) L Lymphocytes # (Auto) 0.8 K/uL (1.0-4.8) L Monocytes # (Auto) 0.3 K/uL (0.1-1.0) Eosinophils # (Auto) 0.08 K/uL (0.00-0.70) Basophils # (Auto) 0.02 K/uL (0.00-0.20) Absolute Immature Granulocyte (auto 0.02 K/uL (0-1) Segmented Neutrophils % 56 % (40-70) Lymphocytes % (Manual) 29 % (22-44) Monocytes % (Manual) 9 % (2-9) Eosinophils % (Manual) 2 % (1-6) Basophils % (Manual) 1 % (0-2) Nucleated Red Blood Cells 0.0 % (0.0-0.19) Differential Comment MANUAL DIFFERENTIAL Reactive Lymphocytes 3 % (0-0) H White Cell Morphology Comment See comments Platelet Morphology Comment MARKED DECREASE Red Blood Cell Morphology See comments Sodium Level 141 mmol/L (136-145) Potassium Level 3.7 mmol/L (3.5-5.1) Chloride Level 100 mmol/L (101-111) L Carbon Dioxide Level 29 mmol/L (21-32) Blood Urea Nitrogen 31 mg/dL (7-18) H Creatinine 7.4 mg/dL (0.5-1.3) H Glomerular Filtration Rate Calc 7 mL/min (>90) Random Glucose 150 mg/dL (70-105) H Total Calcium 9.6 mg/dL (8.5-10.1) Magnesium Level 2.40 mg/dL (1.80-2.40) Troponin I High Sensitivity 18 ng/L (4-75) MDM Patient's main complaint was a new tremor in his left arm now that he is here in the emergency room he says he has a little nausea. Patient has many comorbidities and her workup we will have to be broad. He did complete dialysis today. I will order a CBC chemistry panel EKG viral swabs chest x-ray. Patient's CBC chemistry panel EKG and viral swabs are all negative. Chest x-ray does show what appears to be some increased chest markings in the left and also on the right lower bases these markings are present on the chest x-ray from four months ago. Given the lack of fever lack of productive cough lack of positive nasal swabs for flu COVID and strep I am inclined to not treat these as representing pneumonia. I will discharge the patient back to his rehab facility, with the caveat that he return if his cough becomes productive or worse or if he has a fever and chills. ED Course Orders Procedure Category Date Status Time Basic Metabolic Panel LAB 10/29/24 Complete 00:30 Magnesium LAB 10/29/24 Complete 00:30 Chest 1vw RAD 10/29/24 Taken 00:30 12 Lead Ekg Tracing- EKG 10/29/24 Logged Technical 00:30 Troponin I High LAB 10/29/24 Complete Sensitivity 00:37 Cbc With Differential LAB 10/29/24 Complete 00:58 Manual Differential LAB 10/29/24 Complete 00:58 Vital Signs Date Time Temp Pulse Resp B/P (MAP) Pulse Ox O2 Delivery O2 Flow Rate FiO2 10/29/24 00:22 78 16 102/40 98 Room Air* 0 21 10/29/24 00:18 98.4 76 18 102/40 98 Nasal Cannula 2.0 HEART Score Response (Comments) Value History: Low suspicion (0) 0 Total 0 DX & DISP Disposition: Discharge Departure Impression: Primary Impression: Tremor Condition: Stable Referrals: DANIELLE STREETER MD (PCP) MARILEE HOGAN MD Oct 29, 2024 00:30
[2024-10-29 01:11] LABS: BASOPHILS # (AUTO) 0.02 K/uL (0.00-0.20); BASOPHILS % (AUTO) 0.9 % (0.0-5.0); EOSINOPHILS # (AUTO) 0.08 K/uL (0.00-0.70); EOSINOPHILS % (AUTO) 3.5 % (0.0-8.0); HEMATOCRIT 28.9 % (42-54); IMMATURE GRANULOCYTE ABSOLUTE 0.02 K/uL (0-1); LYMPHOCYTES # (AUTO) 0.8 K/uL (1.0-4.8); LYMPHOCYTES % (AUTO) 36.8 % (21.0-51.0); MEAN CORPUSCULAR HEMOGLOBIN 29.3 pg (27.0-33.0); MEAN CORPUSCULAR HGB CONC 32.2 g/dL (32.0-36.0); MEAN CORPUSCULAR VOLUME 91.2 fL (79-99); MONOCYTES # (AUTO) 0.3 K/uL (0.1-1.0); MONOCYTES % (AUTO) 12.3 % (3.0-13.0); NEUTROPHILS % (AUTO) 45.6 % (40.0-77.0); PLATELET COUNT (AUTO) 35 K/uL (130-400); RED BLOOD CELL COUNT(AUTO) 3.17 MIL/uL (4.50-6.20); RED CELL DISTRIBUTION WIDTH 16.9 % (11.0-15.5); WHITE BLOOD COUNT (AUTO) 2.3 K/uL (4.8-10.8)
[2024-10-29 01:20] LABS: CREATININE 7.4 mg/dL (0.5-1.3); POTASSIUM 3.7 mmol/L (3.5-5.1)
[2024-10-29 01:21] LABS: MAGNESIUM 2.4 mg/dL (1.80-2.40)
[2024-10-29 02:02] LABS: BASOPHILS % (MANUAL) 1 % (0-2); EOSINOPHILS % (MANUAL) 2 % (1-6); LYMPHOCYTES % (MANUAL) 29 % (22-44); MAN.DIFF COMMENT-IMPRESSION MANUAL DIFFERENTIAL; MONOCYTES % (MANUAL) 9 % (2-9); REACTIVE LYMPHOCYTES 3 % (0-0); SEGMENTED NEUTROPHILS % 56 % (40-70); TOTAL CELLS COUNTED 100
[2024-10-29 02:05] LABS: PLATELET MORPHOLOGY COMMENT MARKED DECREASE
--- NOTE | 2024-10-29 02:28 | NUR ---
[facility] CONTACTED FOR TRANSFER BACK TO [facility]
--- NOTE | 2024-10-29 02:39 | NUR ---
REPORT GIVEN TO SANDY AT [facility] FOR PT TRANSPORT BACK TO NURSING FACILITY.
[2024-10-29 03:34] VITALS: BP 129/98; PULSE 71; RESP 16; O2SAT 96
--- NOTE | 2024-10-29 03:49 | NUR ---
[facility] ARRIVAL AT THIS TIME FOR PT TRANSPORT BACK TO [facility].
--- NOTE | 2024-10-29 08:06 | HMCIMG ---
PORTABLE CHEST RADIOGRAPH INDICATION: pneumonia COMPARISON: None FINDINGS: Heart size is normal. Mild calcific plaque is present along the aortic arch werner. The pulmonary vascularity and paco appear normal. Right lung greater than left lower lung opacities. No significant pleural effusion noted. No pneumothorax detected. IMPRESSION: Right lung greater than left lower lung pneumonia. Follow-up chest radiograph is advised in order to ensure resolution.
--- NOTE | 2024-10-29 11:23 | EKG ---
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
== END 2024-10-29 03:54 ==
LOC: EDH
DX: R25.1 Tremor, unspecified (principal); I12.0 Hypertensive chronic kidney disease with stage 5 chronic kidney disease or end stage renal disease; E11.22 Type 2 diabetes mellitus with diabetic chronic kidney disease; N18.6 End stage renal disease; J44.9 Chronic obstructive pulmonary disease, unspecified; Z99.2 Dependence on renal dialysis
CPT/HCPCS: 36415; 71045; 80048; 83735; 84484; 85025; 93005; 99285